=== PATIENT | male | born 1960 | race Caucasian/White ===

== ENCOUNTER → 2019-06-01 15:26 | Outpatient (CLI) | payer MEDICAID | END | disposition home or self-care (01) | LOC: D.CT 05-31 16:00 | PROVIDERS: ATTEND Family Medicine | DX: R31.9 Hematuria, unspecified (principal) ==

== ENCOUNTER 2019-10-07 11:19 | Inpatient (IN) | payer MEDICAID ==
[~2019-10-07] VITALS: Ht 162.6 cm; Wt 72.6 kg
[2019-10-07 12:31] LABS: HEMATOCRIT 46.2 % (42.0-54.0); HEMOGLOBIN 16.1 g/dL (13.5-17.5); LYMPHOCYTES 28.3 % (15-50); MCH 30.9 pg (26.0-34.0); MCHC 34.8 g/dL (31.0-37.0); MCV 88.7 fL (80.0-100.0); MEAN PLATELET VOLUME 10.2 fL (7.4-10.4); NEUTROPHILS 65.1 % (40-80); RBC 5.21 10x6/uL (4.20-6.10); RDW 12.9 % (11.5-14.5); WBC 8.7 10x3/uL (4.8-10.8)
[2019-10-07 12:34] LABS: APPEARANCE HAZY (CLEAR); BACTERIA MANY /hpf (NEGATIVE); BILIRUBIN NEGATIVE (NEGATIVE); COLOR YELLOW (YELLOW); EPITHELIAL CELLS 0-5 /hpf (0-5); GLUCOSE NEGATIVE (NEGATIVE); KETONE NEGATIVE (NEGATIVE); MUCUS <1+ /lpf (NONE SEEN); NITRITE POSITIVE (NEGATIVE); PROTEIN NEGATIVE (NEGATIVE); RED CELLS - URINE 0-5 /hpf (0-5); UROBILINOGEN NORMAL (NORMAL)
[2019-10-07 12:49] LABS: PLATELET COUNT 161 10x3/uL (130-400)
[2019-10-07 12:56] LABS: CALC OSMOLALITY 290 mosm/kg (275-300); CALCIUM 8.2 mg/dL (8.5-10.1); CARBON DIOXIDE 28.1 mmol/L (21.0-32.0); CHLORIDE - SERUM 105 mmol/L (98-107); CREATININE - SERUM 0.7 mg/dL (0.6-1.3); GLUCOSE 181 mg/dL (74-106); SODIUM 144 mmol/L (136-145); UREA NITROGEN 10 mg/dL (7-18); eGFR NON AFRICAN AMERICAN > 90 mL/min (90-120)
[2019-10-07 13:11] LABS: ALBUMIN 3.6 g/dL (3.4-5.0); ALKALINE PHOSPHATASE 67 U/L (46-116); ALT (SGPT) 141 U/L (10-68); BILIRUBIN - TOTAL 0.68 mg/dL (0.2-1.3); MAGNESIUM - SERUM 1.5 mg/dL (1.8-2.4); PHOSPHOROUS 3.1 mg/dL (2.5-4.9); PROTEIN - SERUM 7.8 g/dL (6.4-8.2)
--- NOTE | 2019-10-07 19:30 | NUR ---
PT ARRIVED ON UNIT VIA WHEELCHAIR ACCOMPANIED BY ER STAFF. SELF AMBULATE/TRANSFER TO BED. PATIENT CONNECTED TO ICU MONITORS AT THIS TIME. PT CO CONSTIPATION AND PAIN IN ABDOMEN AND SUPRAPUBLIC AREA. ADMISSIONS ASSESSMENT, HISTORY AND SUICIDE SCREENING COMPLETED AT THIS TIME. VSS CPOC
[2019-10-07 19:43] VITALS: BP 138/76; BMI 27.4
[2019-10-07 20:00] VITALS: BP 124/78
--- NOTE | 2019-10-07 20:13 | NUR ---
ADMISSIONS AT BEDSIDE FOR BELONGINGS
--- NOTE | 2019-10-07 20:34 | NUR ---
PT UP TO BEDSIDE REQUESTED, SELF AMBULATES, STEADY GATE, NON SLIP SOCKS ON AT THIS TIME. SMALL BOWEL MOVEMENT, PATIENT SELF REPORTS STRAINING AND DISCOMFORT.
[2019-10-07 21:00] VITALS: BP 124/78
[2019-10-07 22:00] VITALS: BP 119/70
[2019-10-07 23:00] VITALS: BP 125/85
--- NOTE | 2019-10-07 23:30 | NUR ---
pt resting comfortably easily roused with speech. REASSESSMENT COMPLETED SEE FLOWSHEET
[2019-10-08] VITALS (17 sets, daily range): BP systolic 98–142; BP diastolic 60–84; BMI 27.3
--- NOTE | 2019-10-08 01:00 | NUR ---
PT RESTING COMFORTABLY, NO ACUTE CHANGES CPOC
--- NOTE | 2019-10-08 03:30 | NUR ---
REASSESSMENT COMPLETED SEE FLOWSHEET
[2019-10-08 03:40] LABS: BASOPHILS 0.3 % (0-2); EOSINOPHILS 1.9 % (0-7); HEMATOCRIT 43.6 % (42.0-54.0); HEMOGLOBIN 14.8 g/dL (13.5-17.5); IMMATURE GRANULOCYTES 0.3 % (0-5); LYMPHOCYTES 30.1 % (15-50); MCH 30.9 pg (26.0-34.0); MCHC 33.9 g/dL (31.0-37.0); MONOCYTES 13.8 % (2-11); NEUTROPHILS 53.6 % (40-80); PLATELET COUNT 136 10x3/uL (130-400); RBC 4.79 10x6/uL (4.20-6.10); RDW 12.8 % (11.5-14.5); WBC 7.8 10x3/uL (4.8-10.8)
[2019-10-08 04:02] LABS: ALBUMIN 2.8 g/dL (3.4-5.0); ALKALINE PHOSPHATASE 65 U/L (46-116); ALT (SGPT) 104 U/L (10-68); BILIRUBIN - TOTAL 0.76 mg/dL (0.2-1.3); CALC OSMOLALITY 281 mosm/kg (275-300); CALCIUM 7.7 mg/dL (8.5-10.1); CARBON DIOXIDE 27.6 mmol/L (21.0-32.0); CHLORIDE - SERUM 107 mmol/L (98-107); CREATININE - SERUM 0.8 mg/dL (0.6-1.3); GLUCOSE 93 mg/dL (74-106); MAGNESIUM - SERUM 1.8 mg/dL (1.8-2.4); PHOSPHOROUS 2.9 mg/dL (2.5-4.9); POTASSIUM - SERUM 3.9 mmol/L (3.5-5.1); PROTEIN - SERUM 6.7 g/dL (6.4-8.2); SODIUM 141 mmol/L (136-145); UREA NITROGEN 15 mg/dL (7-18); eGFR NON AFRICAN AMERICAN > 90 mL/min (90-120)
--- NOTE | 2019-10-08 08:20 | NUR ---
PT PROVIDED WITH FRESH WATER REQUESTED. HAS HAD BREAKFAST TRAY. MENU REVIEWED. NOW RESTING WITH LIGHTS OUT AND BLINDS CLOSED.
--- NOTE | 2019-10-08 09:25 | NUR ---
urinal emptied of 100ml dark urine. bedside commode emptied of large soft bowel movement. pt c/o abd starting to hurt and asking for tylenol.
--- NOTE | 2019-10-08 11:23 | NUR ---
DR RUSS HAS BEEN BY TO SEE PATIENT. OK TO SEND TO FLOOR.
--- NOTE | 2019-10-08 12:29 | NUR ---
PT RESTING AT THIS TIME. NO DISTRESS NOTED. CALL LIGHT IN REACH
--- NOTE | 2019-10-08 14:30 | NUR ---
EMPTIED BEDSIDE COMMODE OF ANOTHER LARGE BOWEL MOVEMENT. WENT TO GIVE PATIENT MVI THAT IS ORDERED, NOT IN FRIDGE. CALLED PHARMACY AND SPOKE WITH SRINIVASA
--- NOTE | 2019-10-08 19:15 | NUR ---
PATIENT ALERT AND ORIENTED WHEN ENTERING THE ROOM. PATIENT WITH HYPOACTIVE BOWEL SOUNDS NOTED. DISTENDED ABDOMEN. TENDER TO TOUCH. REQUESTS PAIN MEDICINE WHEN AVAILABLE. HAS LEFT UPPER ARM IV THAT IS INFUSING MVI BAG AT THIS TIME. REFUSES SCD'S. DENIES FURTHER NEEDS AT THIS TIME. CALL LIGHT IN REACH. CPOC.
--- NOTE | 2019-10-08 21:15 | NUR ---
ADMINISTERED PAIN MEDICINE AND ATIVAN PER ORDER.
[2019-10-09 00:30] VITALS: BP 123/76
--- NOTE | 2019-10-09 03:00 | NUR ---
I have reviewed this patient and I concur with the Shift Assessment completed by the Licensed Practical Nurse today this shift.
[2019-10-09 04:30] VITALS: BP 119/52
[2019-10-09 07:46] VITALS: BP 123/70
--- NOTE | 2019-10-09 09:10 | NUR ---
PT RESTLESS THIS MORNING, STATES HE HAS HAD SEVERAL BOUTS OF DIARRHEA, UNABLE TO SIT STILL PT HAS PRN MEDICATION CAN GIVE WILL CONTINUE TO MONITOR BEHAVIOR BEFORE ADMINISTERING. NO OTHER NEEDS VOICED AT THIS TIME, CL IN REACH
--- NOTE | 2019-10-09 10:40 | NUR ---
I have reviewed this patient and I concur with the Shift Assessment completed by the Licensed Practical Nurse today this shift.
[2019-10-09 12:08] VITALS: BP 117/67
[2019-10-09 16:17] VITALS: BP 124/60
--- NOTE | 2019-10-09 19:53 | NUR ---
PATIENT ALERT AND ORIENTED WHEN ENTERING THE ROOM. SLIGHTLY DROWSY. TAKES A SECOND TO ORIENT BUT HE DOES. STATES "I JUST HAD SOME ATIVAN SO IM A LITTLE SLEEPY." PATIENT STATES HEADACHE HAS RESOLVED. DENIES NEEDS AT THIS TIME. IV TO THE LEFT WRIST IV THAT IS PATENT AND INFUSING MVI BAG AT 125. PATIENT IS UP AD BREONNA. LUNGS CLEAR TO AUSCULTATION. ROOM AIR. RECEIVED IN REPORT THAT PATIENT HAD DIARRHEA THROUGH OUT THE DAY. PATIENT STATES NO NEW EPISODES IN LAST HOUR. JUST TOOK SHOWER. IN BED AND WAITING TO GO TO SLEEP FOR NIGHT. CLEANED ROOM FOR PATIENT. DENIES FURTHER NEEDS AT THIS TIME. CPOC.
[2019-10-09 20:01] VITALS: BP 132/77
--- NOTE | 2019-10-09 22:06 | NUR ---
PATIENT REQUESTED ATIVAN. WENT TO [facility] AND PULLED. WENT IN TO SCAN AND ADMINISTER AND PATIENT HAD FALLEN BACK TO SLEEP. CALLED PATIENT NAMED AND TOUCHED ARM AND ASKED IF PATIENT STILL WANTED ATIVAN AND PATIENT STATED "NO I GUESS I DONT NEED IT." AND RETURNED BACK TO SLEEP. WILL EDIT IN EMAR AND WASTED ATIVAN WITH LIANA LIM AT [facility] AND INTO SHARPS CONTAINER PER THUAN.
[2019-10-10 00:30] VITALS: BP 132/67
--- NOTE | 2019-10-10 03:44 | NUR ---
I have reviewed this patient and I concur with the Shift Assessment completed by the Licensed Practical Nurse today this shift.
[2019-10-10 05:00] VITALS: BP 140/72
--- NOTE | 2019-10-10 05:58 | NUR ---
PATIENT REQUESTED ATIVAN AND TYLENOL. WENT TO ADMINISTER AND AFTER DRAWING UP PATIENT REFUSED ATIVAN ONCE AGAIN. PATIENT APPEARS TO BE SLIGHTLY CONFUSED THIS MORNING. WASTED ATIVAN AND RETURNED TYLENOL.
[2019-10-10 08:33] VITALS: BP 153/75
[2019-10-10 13:34] VITALS: BP 125/75
[2019-10-10 13:38] VITALS: Ht 162.6 cm; Wt 72.6 kg
[2019-10-10 17:51] VITALS: BP 116/59; BP 99/51
--- NOTE | 2019-10-10 19:40 | NUR ---
PT SITTING UP IN BED WITHOUT DISTRESS, AOX4. IV RIGHT FA INFUSING MVI @ 125. REQUESTED AND GIVEN TYLENOL FOR PAIN AND ATIVAN. DENIES OTHER NEEDS. CL IN REACH, WILL CTM
[2019-10-10 20:00] VITALS: BP 116/68
[2019-10-11 00:39] VITALS: BP 120/70
[2019-10-11 04:00] VITALS: BP 104/57
[2019-10-11 06:50] LABS: BASOPHILS 0.2 % (0-2); EOSINOPHILS 5.1 % (0-7); HEMATOCRIT 43.7 % (42.0-54.0); IMMATURE GRANULOCYTES 0.2 % (0-5); LYMPHOCYTES 40.5 % (15-50); MCHC 34.3 g/dL (31.0-37.0); MCV 90.3 fL (80.0-100.0); MEAN PLATELET VOLUME 10.9 fL (7.4-10.4); MONOCYTES 9.4 % (2-11); NEUTROPHILS 44.6 % (40-80); PLATELET COUNT 124 10x3/uL (130-400); RBC 4.84 10x6/uL (4.20-6.10); RDW 12.6 % (11.5-14.5); WBC 5.9 10x3/uL (4.8-10.8)
[2019-10-11 07:05] LABS: ALBUMIN 2.9 g/dL (3.4-5.0); ALKALINE PHOSPHATASE 50 U/L (46-116); ALT (SGPT) 106 U/L (10-68); BILIRUBIN - TOTAL 0.78 mg/dL (0.2-1.3); CALC OSMOLALITY 275 mosm/kg (275-300); CALCIUM 8.3 mg/dL (8.5-10.1); CHLORIDE - SERUM 106 mmol/L (98-107); CREATININE - SERUM 0.7 mg/dL (0.6-1.3); GLUCOSE 89 mg/dL (74-106); PROTEIN - SERUM 6.8 g/dL (6.4-8.2); SODIUM 140 mmol/L (136-145); UREA NITROGEN 7 mg/dL (7-18); eGFR NON AFRICAN AMERICAN > 90 mL/min (90-120)
[2019-10-11 07:08] LABS: APTT 30.4 SECONDS (22.8-39.4); INR 1.03 (0.85-1.17)
[2019-10-11 07:54] VITALS: BP 139/80
--- NOTE | 2019-10-11 07:55 | NUR ---
PATIENT RECIEVED RESTING IN BED WITH NO NEEDS VOICED, DENIES PAIN AT THIS TIME. IV LEFT WRIST SL. CL IN REACH
[2019-10-11 11:35] VITALS: BP 109/62
[2019-10-11 16:53] VITALS: BP 120/77
[2019-10-11 20:00] VITALS: BP 109/61
[2019-10-12] VITALS: BP 107/57
--- NOTE | 2019-10-12 02:25 | NUR ---
PT RESTING IN BED. EYES CLOSED. NO SIGNS OF DISTRES. BREATHING EVEN AND UNLABORED. IV SITE LT WRIST DRESSING CLEAN DRY AND INTACT. NO SIGNS OF INFECTION. SKIN CLEAN DRY AND INTACT. BOWEL SOUNDS ACTIVE. LUNG SOUNDS CLEAR. ABD DISTENDED AND TENDER TO PALPATION. NO LOWER LEG SWELLING PRESENT. WILL CONTINUE PLAN OF CARE. CALL LIGHT IN REACH. BED LOWERED AND LOCKED. BED RAILS UP X2.
--- NOTE | 2019-10-12 04:24 | NUR ---
I have reviewed this patient and I concur with the Shift Assessment completed by the Licensed Practical Nurse today this shift.
[2019-10-12 04:30] VITALS: BP 110/58
--- NOTE | 2019-10-12 05:49 | NUR ---
IV INFULTRATED. NEW IV SITED RT WRIST 20G. ATTEMPTS X1. PT TOLERATED WELL. WILL FALLOW UP.
[2019-10-12 06:29] LABS: BASOPHILS 0.3 % (0-2); EOSINOPHILS 1.4 % (0-7); HEMATOCRIT 43.2 % (42.0-54.0); HEMOGLOBIN 14.7 g/dL (13.5-17.5); IMMATURE GRANULOCYTES 0.2 % (0-5); LYMPHOCYTES 24.7 % (15-50); MCH 31.1 pg (26.0-34.0); MCV 91.3 fL (80.0-100.0); MEAN PLATELET VOLUME 11.3 fL (7.4-10.4); NEUTROPHILS 65.4 % (40-80); PLATELET COUNT 132 10x3/uL (130-400); RBC 4.73 10x6/uL (4.20-6.10); RDW 12.7 % (11.5-14.5); WBC 6.5 10x3/uL (4.8-10.8)
[2019-10-12 06:40] LABS: ALKALINE PHOSPHATASE 49 U/L (46-116); ALT (SGPT) 108 U/L (10-68); BILIRUBIN - TOTAL 0.84 mg/dL (0.2-1.3); CALC OSMOLALITY 279 mosm/kg (275-300); CALCIUM 8.5 mg/dL (8.5-10.1); CARBON DIOXIDE 27.1 mmol/L (21.0-32.0); CHLORIDE - SERUM 107 mmol/L (98-107); CREATININE - SERUM 0.6 mg/dL (0.6-1.3); GLUCOSE 113 mg/dL (74-106); POTASSIUM - SERUM 3.8 mmol/L (3.5-5.1); PROTEIN - SERUM 7.1 g/dL (6.4-8.2); SODIUM 141 mmol/L (136-145); UREA NITROGEN 6 mg/dL (7-18); eGFR NON AFRICAN AMERICAN > 90 mL/min (90-120)
--- NOTE | 2019-10-12 08:03 | NUR ---
WENT IN TO GIVE PREOP MEDS. PATIENT NOT IN ROOM.
[2019-10-12 09:00] VITALS: BP 126/72
--- NOTE | 2019-10-12 11:15 | NUR ---
NUTRITION F/U PT NPO FOR PROCEDURE. WILL MONITOR DIET ADVANCEMENT, PT PROGRESS. ASSIST WITH NUTRITION SUPPORT IF NEEDED. RD FOLLOWING
--- NOTE | 2019-10-12 11:58 | MORECARE ---
CASE MANAGEMENT DISCHARGE SUMMARY PATIENT: RUTH SANTIAGO UNIT: [id number] ADM DATE: 10/07/19 AGE: 58 : 64 SEX: M ROOM/BED: D.2216 AUTHOR: AARON,DOC PHYSICIAN: REFERRING PHYSICIAN: IRAJ RUSS MD DATE OF SERVICE: 10/12/19 Discharge Plan Patient Name: RUTH SANTIAGO Facility: [facility]:[place] : 1960 Planned Disposition: Home or Self Care Anticipated Discharge Date: Discharge Date: Expected LOS: Initial Reviewer: [id number] Initial Review Date: 10/07/2019 Generated: 10/12/19 12:58 pm Comments DCP- Discharge Planning Updated by [id number]: Bettye Gee on 10/12/19 10:[address] Patient Name: RUTH SANTIAGO Admission Status: ER Accout number: [id number] Admission Date: 10-07-2019 : 1960 Admission Diagnosis: Attending: IRAJ RUSS Current LOS: 5 Anticipated DC Date: Planned Disposition: Home or Self Care Primary Insurance: MEDICAID [place] Discharge Planning Comments: CM met with patient to complete initial dc planning assessment. CM educated patient on the CM role and verbal consent given by patient to complete assessment. Patient lives at home where he is independent with his care. At discharge patient plans to return home and feels this is a safe discharge. 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 CM discussed availability of home health, rehab services, and medical equipment. I am unsure of potential needs till his surgery is done. Patient denied known discharge needs at this time. CM will continue to follow and will assist as needed with dc plans/needs. Mail Superintendent: Bettye Gee DCPIA - Discharge Planning Initial Assessment Updated by [id number]: Bettye Gee on 10/12/19 11:50 am * Is the patient Alert and Oriented? Yes * How many steps to enter\exit or inside your home? 06/30 * PCP JEB * Pharmacy [facility] [address] * Preadmission Environment Home Alone * ADLs Independent * Equipment None * List name and contact numbers for known caregivers / representatives who currently or will assist patient after discharge: LANI GREENE (SISTER) [phone] * Verbal permission to speak to the caregivers and representatives has been obtained from the patient. N/A * Community resources currently utilized None * Additional services required to return to the preadmission environment? No * Can the patient safely return to the preadmission environment? Yes * Has this patient been hospitalized within the prior 30 days at any hospital? No Patient Name: RUTH SANTIAGO Page [id number] at 1158 All edits/amendments must be made on the electronic document DICTATION DATE: 10/12/19 1158 BUSINESS INTELLIGENCE DEVELOPER: SEBASTIAN 10/12/19 1158 RPT#: [id number] DC DATE: STATUS: ADM IN [facility] [address] [place] [address] END OF REPORT
--- NOTE | 2019-10-12 12:30 | NUR ---
PATIENT BACK TO THE ROOM. VS STABLE. IV INTACT. PATIENT AWAKE LIGHTLY AND WANTING TO GET OUT OF BED. NO COMPLAINTS OR SIGNS OF DISTRESS. EXPLAINED TO PATIENT THAT HE HAS TO STAY IN BED FOR AWHILE. VERBALIZED UNDERSTANDING. CALL LIGHT WITHIN REACH.
[2019-10-12 12:36] VITALS: BP 117/76
--- NOTE | 2019-10-12 12:45 | NUR ---
AT 1155 PATIENT CONTINUED TO TRY TO CLIMB OUT OF BED, STATING HE WANTED TO STAND UP. CONSULTED ANESTHESIA AND REPORTED THE ABOVE. DR. PITTMAN AT BEDSIDE. VERBAL ORDERS RECEIVED TO ADMINISTER VERSED 2MG IV X1 NOW IN PACU. ORDERS RECEIVED AND IMPLEMENTED. WILL CONTINUE TO MONITOR.
--- NOTE | 2019-10-12 13:20 | NUR ---
PATIENT TRYING TO GET OUT OF BED AND GO SMOKE. EXPLAINED NOT ALLOWED TO GO SMOKE. JUST BACK FROM SURGERY. ASSISTED PATIENT TO BR. ABLE TO VOID. ASSISTED BACK TO BED. TURNED BED ALARM ON. EXPLAINED TO PATIENT TO CALL FOR ASSIST.
--- NOTE | 2019-10-12 13:52 | OP ---
PATIENT NAME: RUTH SANTIAGO MEDICAL RECORD: [id number] :[birth year] LOCATION:D.MS [id number] ADMISSION DATE:10/07/19 SURGEON: DIAN VILLAFANA MD DATE OF OPERATION: 10/12/2019 SURGEON: Dian Villafana MD PREOPERATIVE DIAGNOSES: 1. Diverticulitis. 2. Colovesical fistula. 3. Recurrent chronic urinary tract infection. POSTOPERATIVE DIAGNOSES: 1. Diverticulitis. 2. Colovesical fistula. 3. Recurrent chronic urinary tract infection. PROCEDURE PERFORMED: Sigmoid colectomy with end colostomy, small bowel resection, primary repair of bladder and appendectomy. ANESTHESIA: General. COMPLICATIONS: None. SPECIMENS: Sigmoid colon, small bowel, appendix Case was clean contaminated. ESTIMATED BLOOD LOSS: 150 cc. OPERATIVE COURSE: After consent was obtained, the patient was taken to the operating room and placed in the supine position on the operating table. Next, general anesthesia was given via endotracheal intubation after a timeout was performed to confirm the correct patient and procedure. The patient was then placed into the lithotomy position. Appropriate padding and positioning was performed. The abdomen was then prepped and draped in typical sterile fashion and Ioban dressing was placed. A lower midline incision was then performed using the 10 blade scalpel from the umbilicus to the pubic tubercle. Subcutaneous tissue was dissected with electrocautery. The fascia was opened with electrocautery. The peritoneum was grasped with hemostats times 2 and opened with sharp scissor dissection. Once there was direct view into the intra-abdominal space, the remaining portion of the incision was opened with electrocautery. An Quirino wound retractor was placed. A small bowel was attempted to be extracorporealized. There was a loop of small bowel densely adherent to the bladder and sigmoid colon on the anterior dome of the bladder. The small bowel was dissected using electrocautery and sharp scissor dissection of the dome of the bladder as well as the sigmoid colon. There was a partial thickness injury of the dome of the bladder. After takedown at the level of the colovesical fistula, a bladder repair was performed in 2 layers, inner 2-0 Vicryl and an outer 3-0 Vicryl closing the dome of the bladder. The loop of small bowel was in the terminal ileum. The terminal ileum and cecum were gently mobilized off the lateral pelvic side wall. At this time, the sigmoid colon was attempted to mobilized. It was taken off the pelvic side wall using sharp scissor dissection. The white line of Toldt was taken along the distal left colon using electrocautery. The sigmoid colon was held anteriorly exposing the OPERATIVE REPORT [id number] RUTH SANTIAGO vascular bundle. The bundle was dissected out. The artery and vein were identified. They were transected using the Harmonic scalpel. They were then tied off using a 2-0 silk suture, the left and right, the sigmoid colon was transected. Healthy tissue was identified when the sigmoid colon was transected, proximal at the junction of the descending and sigmoid colon using FANY stapler. The left and right ureters were identified and retracted with vessel clamps. The presacral fascia was opened with blunt dissection. The remaining portion of the sigmoid colon was again dissected off the anterior dome of the bladder and the peritoneal reflection was opened. The sigmoid colon was then transected at the rectosigmoid junction using a FANY linear cutting stapler. Remaining portion of the mesenteric attachments were taken with the Harmonic scalpel. The sigmoid colon was passed off the field and sent for permanent pathology. A #8 0 Prolene suture was then fashioned to the staple line with a long tail to allow for identification of the rectal stump. The area was copiously irrigated and suctioned. At this time, an appendectomy was performed. The area of involved fistula was resected off the terminal ileum. A standard [id number] anastomosis was performed with the linear GI stapler. A common enterotomy was closed with a second firing a FANY stapler and a 5 cm section of the small bowel resection was passed off the field and sent for permanent pathology. The staple line was imbricated using 3-0 Vicryl suture. The appendiceal stump was imbricated using 3-0 Vicryl suture. The abdomen was again copiously irrigated and suctioned. An area was identified in the left lateral quadrant. Circular incision was made using electrocautery and subcutaneous tissue was dissected with electrocautery. A cruciate incision was made. The rectus muscles were gently spread with a blunt hemostat. The peritoneum was opened with electrocautery. Using a Astoria, the staple line of the distal colon was grasped and delivered through the anterior abdominal wall. Next, all members of surgical team changed gown and gloves. The closing table was then used to close the fascia with #1 looped PDS. Skin was loosely reapproximated with izaiah and the wound was covered with a dry sterile dressing. At this time, the staple line was opened on the colostomy. The colostomy was secured to the skin in a standard Petra fashion using 3-0 Vicryl suture. At the end of the case, all needle and instrument counts were correct. No complications occurred. The patient was extubated and transferred to the PACU in stable condition. TRANSINT:[id number] Voice Confirmation ID: [id number] DOCUMENT ID: [id number] DIAN VILLAFANA MD at 1352 CC: [id number] DICTATION DATE: 10/12/19 1108 DARKROOM WORKER: 10/12/19 1205 ADM IN [facility] [address] [place] [address]
--- NOTE | 2019-10-12 14:06 | NUR ---
PATIENT CONFUSED TRYING TO GET OUT OF BED AT THIS TIME. IV INTACT. ATIVAN GIVEN. VS STABLE. INCISION INTACT, SMALL AMOUNT OF RED DRAINAGE ON DRESSING. COLOSTOMY INTACT. CALL LIGHT WITHIN REACH.
--- NOTE | 2019-10-12 14:30 | NUR ---
PATIENT COLOSTOMY CHANGED DUE TO LEAKING ON THE OUTSIDE. PATIENT TRYING TO GET UP AND DOWN FROM BED AND CAUSE HIS ABDOMINAL INCISION AND COLOSTOMY SITE TO BLEED A SMALLA MOUNT. PATIENT IV INTACT. EXPLAINED TO PATIENT NOT TO GET BACK UP WITHOUT ASSIST. BED ALARM ON. CALL LIGT WITHIN REACH.
[2019-10-12 16:19] VITALS: BP 134/78
--- NOTE | 2019-10-12 16:30 | NUR ---
ASSISTED PATIEN TO BR AGAIN. REFUSING TO LET ME TAKE ANYMORE POST OP VS. VS WNL. VOIDED AND BACK TO BED. BSCDS ON AND WORKING. CALL LIGHT WITHIN REACH, BED ALARM ON.
--- NOTE | 2019-10-12 18:41 | NUR ---
PATIENT OUT OF BED AGAIN IN HALLWAY WANTING A TRAY. EXPLAINED HE WAS NPO AT THIS TIME. VERBALIZED UNDERSTANDING. ASSISTED BACK TO BED. BED ALARM ON. CALL LIGHT WITHIN REACH.
--- NOTE | 2019-10-12 19:50 | NUR ---
PT STANDING UP IN ROOM. DISCOURAGED PT FROM AMBULATING WITHOUT HELP. YAZMIN ALARM ACTIVATED. PT IS VERY CONFUSED. ORIENTED TO SELF AND TIME ONLY. UNAWARE THAT HE HAD SURGERY AND THAT HE IS IN THE HOSPITAL. ASSISTED BACK TO BED. RESP NONLABORED. NOT WEARING SCDS. COLOSTOMY NOTED TO LT QUAD WITH PINK STOMA AND BLOODY DRAINAGE IN BAG. MIDLINE ABD DRSG NOTED WITH OLD DRAINAGE MARKED. RATES PAIN 10. HAS SCHEDULED TORADOL THAT WAS DUE AT 1900. CL IN REACH.
--- NOTE | 2019-10-12 21:00 | NUR ---
STANDING UP AT BEDSIDE. STATES HE NEEDS TO GO OUTSIDE. ASSISTED PT BACK TO BED. YAZMIN ALARM ON. INFORMED PT THAT HE HAD ABDOMINAL SURGERY AND NEEDS TO REST. VERY CONFUSED. DIFF FOLLOWING DIRECTIONS. CL IN REACH.
--- NOTE | 2019-10-12 23:19 | NUR ---
PT OOB IN HALLWAY INSISTING HE IS GOING HOME. VERY CONFUSED AND AGITATED. SNAPPED IV TUBING INTO. ASSISTED BACK TO BED. MEDICATED WITH ATIVAN IV ORDERED. EMCOURAGED BED REST. PT HAS BEEN UP AND DOWN SEVERAL TIMES SINCE START OF SHIFT. YAZMIN ALARM ON. CL IN REACH.
[2019-10-13] VITALS (25 sets, daily range): BP systolic 89–128; BP diastolic 34–67
--- NOTE | 2019-10-13 00:08 | NUR ---
LYING ON RT SIDE IN BED WITH EYES CLOSED. RESP EVEN AND NONLABORED. NOT ASLEEP. MOVING SLIGHTLY IN BED. YAZMIN ALARM ON. CL IN REACH. NO DISTRESS.
--- NOTE | 2019-10-13 02:01 | NUR ---
LYING ON LT SIDE IN BED WITH EYES CLOSED. RESP EVEN AND NONLABORED. NO DISTRESS. CL IN REACH. YAZMIN ALARM ON
--- NOTE | 2019-10-13 04:27 | NUR ---
ORIENTED TO SELF, PLACE AND TIME. CONFUSED TO SITUATION. DOESNT REMEMBER HAVING SURGERY. YAZMIN ALARM ON. CL IN REACH.
--- NOTE | 2019-10-13 05:41 | NUR ---
FLATUS NOTED IN COLOSTOMY BAG WITH LIQUID STOOL THAT IS REDDISH BROWN. EMPTIED 50 ML FROM BAG.
[2019-10-13 06:31] LABS: BASOPHILS 0.1 % (0-2); EOSINOPHILS 0 % (0-7); IMMATURE GRANULOCYTES 0.4 % (0-5); LYMPHOCYTES 19.3 % (15-50); MCH 30.8 pg (26.0-34.0); MCHC 33.4 g/dL (31.0-37.0); MCV 92.2 fL (80.0-100.0); MONOCYTES 8.7 % (2-11); NEUTROPHILS 71.5 % (40-80); PLATELET COUNT 151 10x3/uL (130-400); RDW 12.8 % (11.5-14.5)
[2019-10-13 06:35] LABS: HEMATOCRIT 31.7 % (42.0-54.0); HEMOGLOBIN 10.6 g/dL (13.5-17.5); RBC 3.44 10x6/uL (4.20-6.10); WBC 11.2 10x3/uL (4.8-10.8)
[2019-10-13 06:54] LABS: ALBUMIN 2.5 g/dL (3.4-5.0); ALKALINE PHOSPHATASE 35 U/L (46-116); ALT (SGPT) 88 U/L (10-68); BILIRUBIN - TOTAL 1.07 mg/dL (0.2-1.3); CALCIUM 7.8 mg/dL (8.5-10.1); CARBON DIOXIDE 27.8 mmol/L (21.0-32.0); CHLORIDE - SERUM 107 mmol/L (98-107); GLUCOSE 150 mg/dL (74-106); POTASSIUM - SERUM 4.2 mmol/L (3.5-5.1); PROTEIN - SERUM 5.5 g/dL (6.4-8.2); SODIUM 141 mmol/L (136-145); eGFR NON AFRICAN AMERICAN > 90 mL/min (90-120)
[2019-10-13 06:56] LABS: CALC OSMOLALITY 282 mosm/kg (275-300); CREATININE - SERUM 0.9 mg/dL (0.6-1.3); UREA NITROGEN 11 mg/dL (7-18)
--- NOTE | 2019-10-13 07:40 | NUR ---
ALERT AND ORIENTED. LUNGS CLEAR BILATERALLY. HEART SOUNDS S1 AND S2 HEARD IN ALL MICHAUD. BOWEL SOUNDS ACTIVE X 4. MIDLINE INCISION TO ABD WITH DRSG. DRIED BLOOD NOTED TO DRSG. LEFT SIDE OSTOMY PATENT. 50ML DRAINED FROM BAG. IF TO RFA PATENT WITHOUT REDNESS. ASKING FOR PAIN MEDICATION. NO PAIN MEDICATION ON JAN. BP 97/56. DENIES FURTHER NEEDS. FALL PRECAUTIONS IN PLACE. CALL MORAES AND PERSONAL ITEMS IN REACH. WILL CONTINUE TO MONITOR.
--- NOTE | 2019-10-13 09:11 | NUR ---
LEÓN PLACED PER ORDER.
--- NOTE | 2019-10-13 09:27 | NUR ---
BOLUS INFUSING. WILL CHECK BP AFTER BOLUS TO SEE IF CAN GIVE PAIN MEDICATION. EDUCATION PROVIDED TO PATIENT. VERBALIZED UNDERSTANDING.
--- NOTE | 2019-10-13 11:45 | NUR ---
PATIENT FOUND WITH BLOOD TO ABDOMEN AND OSTOMY BAG WITH 100ML BLOOD. DIAPHORETIC AND COLD. DR BRODERICK TUCKER. VITALS BP 100/44, HR 80, O2 97% ROOM AIR, TEMP 97.6.
--- NOTE | 2019-10-13 12:00 | NUR ---
ORDER FOR LR BOLUS 1000ML X 2 BAGS. IV PREVIOUSLY PULLED OUT. RESITED TO RIGHT AND LEFT AC. BOLUS BAGS STARTED. OSTOMY BAG CHANGED.
--- NOTE | 2019-10-13 12:20 | NUR ---
IV TO RIGHT AND LEFT AC OCCLUDED. RESITED TO RIGHT AND LEFT WRIST. DR VILLAFANA IN ROOM. ORDER TO TRANSFER TO ICU WHEN ROOM READY. ICU AWARE.
--- NOTE | 2019-10-13 12:29 | NUR ---
REPORT CALLED TO ICU. DENIES FURTHER QUESTIONS. PATIENT SENT TO ICU WITH NURSE RECORDS MANAGEMENT ASSISTANT SHRUTHI AND DRAKE SHANE.
--- NOTE | 2019-10-13 12:49 | NUR ---
PT TO UNIT VIA BED, HOOKED TO MONITORS, B/L HAND PIV, ON RA WITH 100% O2 SAT. INCISION TO ABDOMEN, MARION INTACT, DRSG APPLIED, COLOSTOMY NOTED WITH BROWN DRAINAGE, LEÓN CATHETER WITH DARK UOP, ALL PPP, VSS, CALL LIGHT IN REACH
--- NOTE | 2019-10-13 13:00 | NUR ---
AT BEDSIDE. WILL CONT TO MONITOR.
[2019-10-13 13:46] LABS: CKMB 0.7 U/L (0.0-3.6); CREATINE KINASE 347 UL (21-232); TROPONIN-I 0.052 ng/mL (0.000-0.060)
--- NOTE | 2019-10-13 15:00 | NUR ---
PT RECEIVING BLOOD. NO ACUTE NEEDS OR DISTRESS NOTED AT THIS TIME. WILL CONT TO MONITOR.
--- NOTE | 2019-10-13 17:00 | NUR ---
PT IN BED RESTING WITH EYES CLOSED. PT DENIES ANY NEEDS OR DISTRESS AT THIS TIME. VSS. WILL CONT TO MONITOR.
[2019-10-13 18:28] LABS: HEMATOCRIT 26.9 % (42.0-54.0); HEMOGLOBIN 8.9 g/dL (13.5-17.5)
[2019-10-13 18:53] LABS: CKMB 0.8 U/L (0.0-3.6); CREATINE KINASE 280 UL (21-232)
[2019-10-13 18:55] LABS: TROPONIN-I 0.158 ng/mL (0.000-0.060)
--- NOTE | 2019-10-13 19:15 | NUR ---
PT ALERT, VOICES NEEDS, LUNGS CLEAR, LEFT TLSC INTACT WITH FFP INFUSING AND D5LR WITH 20 KCL @ 50 CC/HR, LEÓN PATENT TO BSD WITH BLOOD TINGED URINE, LEFT COLOSTOMY WITH BAG INTACT, ABDOMINAL INCISION WITH DRESSING C/D/I, VITALS STABLE, WILL CONT TO MONITOR
--- NOTE | 2019-10-13 21:00 | NUR ---
PT C/O PAIN, INFORMED PT HIS PAIN MED WAS NOT DUE YET, PT CONSTANTLY SQUIRMING IN BED, INSTRUCTED PT THAT MORE MOVEMENT WOULD IN CREASE HIS PAIN
--- NOTE | 2019-10-13 22:00 | NUR ---
BED ALARM ENGAGED, PT TRYING TO CLIMB OUT OF BED, CONFUSED, STAES HE HASNT HAD ANY PAIN MEDS, INFORMED PT HE COULD NOT GET OUT OF BED, PT GROGGY, CONFUSED, BED ALARM RESET, WILL CONT TO MONITOR
--- NOTE | 2019-10-13 22:45 | NUR ---
BED ALARM SOUNDED, PT CLIMBING OUT OF BED, CONFUSED, RETURNED TO BED WITH ASSIST FROM STAFF, REPLACED LEÓN STAT OSCAR, PT PLACED IN BILAT SOFT WRIST RESTRAINTS
--- NOTE | 2019-10-13 22:50 | NUR ---
DR. ARRINGTON PAGED. AT 2300 DR. ARRINGTON RETURNED PAGE - NOTIFIED OF PT PULLING AT LEÓN CATH, SURGICAL DSG/OSTOMY BAG AND IV TUBINGS. NEW ORDERS REC'D.
[2019-10-14] VITALS (31 sets, daily range): BP systolic 90–196; BP diastolic 43–118
[2019-10-14 00:51] LABS: HEMOGLOBIN 5.5 g/dL (13.5-17.5)
[2019-10-14 00:53] LABS: HEMATOCRIT 16.5 % (42.0-54.0)
--- NOTE | 2019-10-14 01:00 | NUR ---
LAB CALLED, H/H CRITICAL, CALLED DR KWOK, NOTIFIED OF PT SITUATION AND CRITICALS, ORDERS RECIEVED TO TRANSFUSE FFP AND PRBC
--- NOTE | 2019-10-14 01:22 | NUR ---
PT REMAINS CONFUSED, IS NOW TACHYCARDIC, STARTED 1ST UNIT PRBC VIA LEFT TLSC, WILL CONT TO MONITOR
[2019-10-14 01:46] LABS: CKMB 1.3 U/L (0.0-3.6); CREATINE KINASE 267 UL (21-232)
[2019-10-14 01:47] LABS: TROPONIN-I 0.107 ng/mL (0.000-0.060)
--- NOTE | 2019-10-14 02:10 | NUR ---
PT RESTING, HR 96, VITALS STABLE, BLOOD TRANSFUSING, REMAINS CONFUSED WITH RESTRAINTS IN USE
--- NOTE | 2019-10-14 04:10 | NUR ---
TRANSFUSION 3RD UNIT PRBC COMPLETED, PT REMAINS CONFUSED, NOTED BLOODY OUTPUT FROM COLOSTOMY, ABDOMEN DISTENDED, VITALS STABLE, WILL CONT TO MONITOR
--- NOTE | 2019-10-14 05:00 | NUR ---
PT REMAINS CONFUSED, AM LABS DRAWN FROM LEFT [facility], WILL CONT TO MONITOR
[2019-10-14 06:21] LABS: ALBUMIN 2.3 g/dL (3.4-5.0); ANION GAP 13.4 mmol/L (8-16); BILIRUBIN - TOTAL 1.88 mg/dL (0.2-1.3); CALCIUM 7.4 mg/dL (8.5-10.1); CARBON DIOXIDE 24.7 mmol/L (21.0-32.0); CREATININE - SERUM 1.2 mg/dL (0.6-1.3); POTASSIUM - SERUM 5.1 mmol/L (3.5-5.1); PROTEIN - SERUM 4.8 g/dL (6.4-8.2)
--- NOTE | 2019-10-14 06:43 | NUR ---
PT REMAINS CONFUSED, ABDOMEN MORE FIRM, DISTENDED, BOWEL SOUNDS HYPOACTIVE, WILL CONT TO MONITOR
[2019-10-14 06:52] LABS: LYMPHOCYTES 14.2 % (15-50); MCH 31.3 pg (26.0-34.0); MEAN PLATELET VOLUME 12.5 fL (7.4-10.4); NEUTROPHILS 74.7 % (40-80); RDW 13.7 % (11.5-14.5); WBC 12.3 10x3/uL (4.8-10.8)
[2019-10-14 06:53] LABS: HEMATOCRIT 24.6 % (42.0-54.0); HEMOGLOBIN 8.6 g/dL (13.5-17.5); MCV 89.5 fL (80.0-100.0); PLATELET COUNT 66 10x3/uL (130-400); RBC 2.75 10x6/uL (4.20-6.10)
--- NOTE | 2019-10-14 07:00 | NUR ---
REC'D REPORT AND REUSMED CARE, AWAKE AND CONFUSED, DOES NOT FOLLOW COMMANDS, VSS, O2 VIA NC AT 2L, B/L WRIST RESTRAINTS IN USE, LEÓN TO GRAVITY WITH BLOODY DRAINAGE TO BAG, MIDLINE ABDOMINAL INCISION WITH ABD PAD, AFFIXED, BLOOD NOTE TO EDGES, LEFT COLOSTOMY WITH BLODDY DRAINAGE TO BAG, ASSESSMENT, COMPLETED PER FLOWSHEET, ORAL CARE WITH TOOTHETTES GIVEN, WILL CONTINUE TO MONITOR
[2019-10-14 07:27] LABS: APTT 27.7 SECONDS (22.8-39.4); INR 1.14 (0.85-1.17); PROTIME 14.1 SECONDS (11.6-15.0)
[2019-10-14 08:51] LABS: PLATELET ESTIMATE DECREASED
--- NOTE | 2019-10-14 09:00 | NUR ---
MORNING MEDICATIONS GIVEN PER MAR FLOWSHEET
--- NOTE | 2019-10-14 10:30 | NUR ---
C/O OF PAIN IN BACK, MORPHINE 2 MG IVP GIVEN PER PRN ORDER
--- NOTE | 2019-10-14 11:00 | NUR ---
RESTING WTIH NO SIGN OF DISTRESS, VSS, DENIES PAIN AT THIS TIME, NO ACUTE CHANGE FROM PREVIOUS ASSESSMENT
--- NOTE | 2019-10-14 11:10 | NUR ---
Nutrition follow-up: Pt s/p exp lap Now in ICU NPO Labs reviewed Pt with confusion and hypoactive BS with firmness per nursing. Recommend starting ProcalAmine PPN @ 75 ml per hour until pts diet able to advance. RDN following.
[2019-10-14 11:11] LABS: HEMATOCRIT 20.4 % (42.0-54.0)
[2019-10-14 11:14] LABS: HEMOGLOBIN 7.2 g/dL (13.5-17.5)
--- NOTE | 2019-10-14 13:40 | NUR ---
TC HERE FOR ECHO, PER DR VILLAFANA, PATIENT TO SURGERY FIRST RE: BLEED, SURGERY NOTIFIED TO TURN OUT PATIENT
--- NOTE | 2019-10-14 13:45 | NUR ---
TO SURGERY VIA BED WITH PERSONNEL TIMES 3, AWAKE AND CONFUSED, PRBC'S INFUSING AT 125 CC/HR
--- NOTE | 2019-10-14 13:51 | NUR ---
PREOP MEDS GIVEN, PATIENT TO SURGERY VIA BED WITH HOSPITAL PERSONNEL X3, AWAKE AND CONFUSED, VSS
--- NOTE | 2019-10-14 14:54 | NUR ---
9 LAPS PACKED IN PATIENTS ABDOMEN. KD
--- NOTE | 2019-10-14 15:20 | NUR ---
BACK FROM SURGERY, 7.0 ETT AT [address], AMBU BAG IN USE, PLACE TO VENT ON AC WITH 100% FIO2, WV TO ABDOMIN MIDLINE, NGT CLAMPED TO RIGHT NARE, NO OTHER ACUTE CHANGE FROM PREVIOUS ASSESSMENTS,
[2019-10-14 16:13] LABS: APTT 27.2 SECONDS (22.8-39.4); CALCIUM 7.6 mg/dL (8.5-10.1); CARBON DIOXIDE 27.5 mmol/L (21.0-32.0); CHLORIDE - SERUM 112 mmol/L (98-107); INR 1.06 (0.85-1.17); POTASSIUM - SERUM 5.1 mmol/L (3.5-5.1); PROTIME 13.3 SECONDS (11.6-15.0); SODIUM 144 mmol/L (136-145); UREA NITROGEN 25 mg/dL (7-18); eGFR NON AFRICAN AMERICAN > 90 mL/min (90-120)
[2019-10-14 16:17] LABS: CALC OSMOLALITY 291 mosm/kg (275-300); CREATININE - SERUM 0.8 mg/dL (0.6-1.3); GLUCOSE 118 mg/dL (74-106)
[2019-10-14 16:20] LABS: HEMATOCRIT 29.9 % (42.0-54.0); HEMOGLOBIN 10.1 g/dL (13.5-17.5)
--- NOTE | 2019-10-14 16:59 | OP ---
PATIENT NAME: RUTH SANTIAGO MEDICAL RECORD: [id number] :64 LOCATION:[facility] D.2311 ADMISSION DATE:10/07/19 SURGEON: DIAN VILLAFANA MD DATE OF OPERATION: 10/14/2019 PROCEDURE PERFORMED: Laparotomy, drainage, evacuation of intra-abdominal hematoma, abdominal packing with hemorrhage control. ANESTHESIA: General. COMPLICATIONS: None. SPECIMENS: None. Case was clean. ESTIMATED BLOOD LOSS: 5 liters. OPERATIVE COURSE: After consent was obtained, the patient was taken to the operating room and placed in supine position on the operating table. Next, general anesthesia was given via endotracheal intubation after a timeout was performed to confirm the correct patient and procedure. Abdomen was prepped and draped in typical sterile fashion. Previous midline abdominal izaiah were removed. Dissection continued down to the level of the fascia. The Prolene closing suture was identified. It was cut with scissors. The remaining sutures removed. The abdominal cavity was reopened. Approximately, 5 liters of blood were evacuated from the abdominal cavity. The abdominal cavity was then packed in all 4 quadrants and held for approximately 10 minutes. At this time, the packing was removed from all 4 quadrants and all 4 quadrants were inspected. There was no active bleeding noted within the abdominal cavity. The abdominal cavity was then copiously irrigated with saline. Again, meticulous inspection was performed in the areas of previous surgery. Again, no active bleeding was identified. The abdomen was packed with laparotomy sponges, totaling 9; two placed into the left upper quadrant, two into the right upper quadrant, one on the right lateral side wall, three into the pelvis and one to the left lateral side wall. At this time, the ABThera intra-abdominal wound VAC was cut to size and placed into the abdominal cavity, covered by the outer sponge, it was secured to the skin with tape, placed to suction with good seal. At this time, the patient was transferred to the ICU in critical condition, intubated. TRANSINT:[id number] Voice Confirmation ID: [id number] DOCUMENT ID: [id number] DIAN VILLAFANA MD at 1659 CC: [id number] DICTATION DATE: 10/14/19 1514 SEO MANAGER: 10/14/19 1619 ADM IN [place] [id number] [facility] [place] [address]
--- NOTE | 2019-10-14 19:15 | NUR ---
RECEIVED CARE OF PT, ASSESSMENT PER FLOWSHEET. PT INTUBATED, AGITATED AT THIS TIME, DIPRIVAN GTT AND FENTANYL GTT'S INCREASED PER MD ORDERS, PT REPOSITIONED FOR COMFORT, ABD WOUND VAC CDI, COLOSTOMY DRESSING INTACT-BLOODY DRAINAGE NOTED IN COLLECTION BAG, LEÓN CATH PATENT, PPP, HR SR ON CM. POSITIONED FOR COMFORT, WILL MONITOR.
[2019-10-14 19:49] LABS: HEMATOCRIT 28.7 % (42.0-54.0); HEMOGLOBIN 9.8 g/dL (13.5-17.5)
--- NOTE | 2019-10-14 21:30 | NUR ---
NO VISITORS PRESENT AT THIS TIME, VSS, PT RESTING AT THIS TIME
--- NOTE | 2019-10-14 23:26 | NUR ---
PT AGITATED, INCREASED FENTANYL GTT FROM 150 TO 200 MCG/HR PER MD ORDER. WILL MONITOR FOR DESIRED EFFECT, ALL ATTEMPTS TO VERBALLY CALM PT UNSUCCESSFUL.
[2019-10-15] VITALS (24 sets, daily range): BP systolic 88–109; BP diastolic 45–65
[2019-10-15 00:18] LABS: HEMATOCRIT 26.5 % (42.0-54.0)
--- NOTE | 2019-10-15 00:35 | NUR ---
H & H RESULTS REVIEWED, VSS AT THIS TIME, WILL CONT POC.
--- NOTE | 2019-10-15 03:15 | NUR ---
REASSESSMENT PER FLOWSHEET, NO ACUTE CHANGES NOTED A THIS TIME. PT RESTING SEDATED ON VENT, HR SR ON CM, POSITIONED FOR COMFORT, CONT POC.
[2019-10-15 05:08] LABS: BASOPHILS 0 % (0-2); EOSINOPHILS 0 % (0-7); HEMATOCRIT 27.7 % (42.0-54.0); HEMOGLOBIN 9.4 g/dL (13.5-17.5); IMMATURE GRANULOCYTES 0.3 % (0-5); MCH 30.7 pg (26.0-34.0); MCHC 33.9 g/dL (31.0-37.0); MCV 90.5 fL (80.0-100.0); MEAN PLATELET VOLUME 10.9 fL (7.4-10.4); NEUTROPHILS 71.7 % (40-80); RBC 3.06 10x6/uL (4.20-6.10); RDW 14.7 % (11.5-14.5)
[2019-10-15 05:22] LABS: PLATELET COUNT 92 10x3/uL (130-400); WBC 9.2 10x3/uL (4.8-10.8)
[2019-10-15 05:25] LABS: ALBUMIN 1.9 g/dL (3.4-5.0); ALKALINE PHOSPHATASE 38 U/L (46-116); ALT (SGPT) 58 U/L (10-68); BILIRUBIN - TOTAL 3.73 mg/dL (0.2-1.3); CALC OSMOLALITY 290 mosm/kg (275-300); CALCIUM 7.3 mg/dL (8.5-10.1); CARBON DIOXIDE 26.4 mmol/L (21.0-32.0); CHLORIDE - SERUM 110 mmol/L (98-107); CREATININE - SERUM 0.8 mg/dL (0.6-1.3); GLUCOSE 132 mg/dL (74-106); PROTEIN - SERUM 4.5 g/dL (6.4-8.2); SODIUM 144 mmol/L (136-145); UREA NITROGEN 19 mg/dL (7-18); eGFR NON AFRICAN AMERICAN > 90 mL/min (90-120)
[2019-10-15 05:26] LABS: POTASSIUM - SERUM 4.3 mmol/L (3.5-5.1)
[2019-10-15 05:31] LABS: D-DIMER-QUANTITATIVE 2.22 ug/mLFEU (0.20-0.54)
--- NOTE | 2019-10-15 08:15 | NUR ---
LYING IN BED ON VENT AT THIS TIME. VSS. NO ACUTE DISTRESS NOTED. PT TURNED Q2H. ORAL CARE PROVIDED Q2H. WOUND VAC SITE CDI, DRESSING ADHERED TO SKIN. NOTED WITH LIGHT BLOODY APPEARING DRAINAGE TO WOUND VAC, LEÓN, AND SLIGHT AMOUNT TO COLOSTOMY OF LIGHT BOODY DRAINAGE. THIS IS NO CHANGE PER SHIFT REPORT. WILL CONTINUE TO OBSERVE.
--- NOTE | 2019-10-15 08:20 | NUR ---
NOTED ORDER TO CHECK H&H Q4H PER DR VILLAFANA, ORDER FELL OFF AFTER 0500 DRAW, ORDER RESTARTED.
[2019-10-15 09:26] LABS: HEMATOCRIT 27.6 % (42.0-54.0); HEMOGLOBIN 9.3 g/dL (13.5-17.5)
--- NOTE | 2019-10-15 10:11 | NUR ---
NO ACUTE DISTRESS NOTED. NO CHANGE. VSS. SWAP CAPS IN PLACE. WILL CONTINUE PLAN OF CARE.
--- NOTE | 2019-10-15 10:50 | NUR ---
NGT PLACED TO LOW INT SUCTION PER DR VILLAFANA.
--- NOTE | 2019-10-15 12:37 | NUR ---
NO ACUTE DISTRESS NOTED. NO CHANGE. VSS. CALL LIGHT IN REACH. WILL CONTINUE PLAN OF CARE.
--- NOTE | 2019-10-15 14:13 | NUR ---
NO ACUTE DISTRESS NOTED. NO CHANGE. VSS. TURNED Q2H. ORAL CARE PROVIDED Q2H. NOTED PT OPENS EYES AT TIMES, NODDED HEAD WHEN ASKED YES/NO QUESTION. WILL CONTINUE PLAN OF CARE.
--- NOTE | 2019-10-15 15:11 | NUR ---
CHG BATH GIVEN AT THIS TIME WITH TOTAL LINEN CHANGE. TRIPP CARE PROVIDED. NO ACUTE DISTRESS NOTED. VSS. PT TURNED Q2H. ORAL CARE PROVIDED Q2H. WILL CONTINUE PLAN OF CARE.
--- NOTE | 2019-10-15 15:24 | NUR ---
NOTED PROCEDURE FOR TOMORROW. ATTEMPTED TO CONTACT PTS FAMILY TO OBTAIN CONSENTS. NO ANSWER NOTED WHEN CALLED EMERGENCY CONTACT NUMBER. VOICEMAIL LEFT.
--- NOTE | 2019-10-15 15:28 | NUR ---
ATTEMPTED TO CALL SECOND NUMBER OF EMERGENCY CONTACT OF [phone] AND RECIEVED A VERIZON MESSAGE THAT SAID THE "THE NUMBER YOU HAVE DIALED HAS CALLING RESTRICTIONS THAT HAVE PRESENTED THE COMPLETION OF YOUR CALL."
--- NOTE | 2019-10-15 15:43 | NUR ---
RECIEVED CALLBACK FROM PTS SISTER LANI GREENE AT [phone]. UPDATES PROVIDED, PTS SISTER GAVE CONSENT FOR PROCEDURE TOMORROW, CONFIRMED BY SECOND NURSE. NO ACUTE DISTRESS NOTED. VSS. WILL CONTINUE PLAN OF CARE.
[2019-10-15 17:12] LABS: BASOPHILS 0.1 % (0-2); EOSINOPHILS 0 % (0-7); HEMATOCRIT 26.9 % (42.0-54.0); HEMOGLOBIN 8.9 g/dL (13.5-17.5); IMMATURE GRANULOCYTES 0.6 % (0-5); MCH 30.8 pg (26.0-34.0); MCHC 33.1 g/dL (31.0-37.0); MEAN PLATELET VOLUME 10.7 fL (7.4-10.4); MONOCYTES 20.7 % (2-11); NEUTROPHILS 69.6 % (40-80); PLATELET COUNT 93 10x3/uL (130-400); RBC 2.89 10x6/uL (4.20-6.10); RDW 14.9 % (11.5-14.5); WBC 10.5 10x3/uL (4.8-10.8)
[2019-10-15 17:13] LABS: MCV 93.1 fL (80.0-100.0)
--- NOTE | 2019-10-15 17:15 | NUR ---
NO ACUTE DISTRESS NOTED. NO CHANGE. VSS. WILL CONTINUE PLAN OF CARE.
[2019-10-15 17:37] LABS: PLATELET ESTIMATE DECREASED
[2019-10-16] VITALS (27 sets, daily range): BP systolic 90–127; BP diastolic 50–76
[2019-10-16 05:02] LABS: BASOPHILS 0.1 % (0-2); EOSINOPHILS 0.1 % (0-7); HEMATOCRIT 25.4 % (42.0-54.0); HEMOGLOBIN 8.2 g/dL (13.5-17.5); IMMATURE GRANULOCYTES 0.6 % (0-5); LYMPHOCYTES 15.1 % (15-50); MCH 30.5 pg (26.0-34.0); MCHC 32.3 g/dL (31.0-37.0); MCV 94.4 fL (80.0-100.0); MEAN PLATELET VOLUME 10.7 fL (7.4-10.4); MONOCYTES 17.3 % (2-11); NEUTROPHILS 66.8 % (40-80); PLATELET COUNT 95 10x3/uL (130-400); RBC 2.69 10x6/uL (4.20-6.10); RDW 15.1 % (11.5-14.5); WBC 10.3 10x3/uL (4.8-10.8)
[2019-10-16 05:07] LABS: APTT 28.3 SECONDS (22.8-39.4); INR 1.21 (0.85-1.17); PROTIME 14.7 SECONDS (11.6-15.0)
--- NOTE | 2019-10-16 05:10 | NUR ---
CHG BATH AND COMPLETE LINEN CHANGE DONE, PT TOLERATED WITHOUT DIFFICULTY. VSS
[2019-10-16 05:25] LABS: ALBUMIN 1.5 g/dL (3.4-5.0); ALKALINE PHOSPHATASE 28 U/L (46-116); ALT (SGPT) 47 U/L (10-68); BILIRUBIN - TOTAL 5.33 mg/dL (0.2-1.3); CALC OSMOLALITY 293 mosm/kg (275-300); CALCIUM 7.5 mg/dL (8.5-10.1); CARBON DIOXIDE 31.5 mmol/L (21.0-32.0); CHLORIDE - SERUM 112 mmol/L (98-107); CREATININE - SERUM 0.7 mg/dL (0.6-1.3); GLUCOSE 137 mg/dL (74-106); PROTEIN - SERUM 4.2 g/dL (6.4-8.2); SODIUM 146 mmol/L (136-145); UREA NITROGEN 16 mg/dL (7-18); eGFR NON AFRICAN AMERICAN > 90 mL/min (90-120)
--- NOTE | 2019-10-16 08:32 | NUR ---
LYING IN BED ON VENT AT THIS TIME. VSS. NOTED PT TO GO TO OR LATER TODAY. NO ACUTE DISTRESS NOTED. WILL CONTINUE PLAN OF CARE.
--- NOTE | 2019-10-16 11:20 | NUR ---
LEFT TO OR AT THIS TIME VIA BED ACCOMPANIED BY OR STAFF ON MONITOR. VSS. BLOOD INFUSING. NO ACUTE DISTRESS NOTED.
--- NOTE | 2019-10-16 11:53 | NUR ---
PT PACKED WITH [address] VILLAFANA. THOSE 9 REMOVED AT BEGINNING OF SURGERY AND TAKEN OFF THE FIELD PER SUNSHINE STANLEY
--- NOTE | 2019-10-16 12:06 | NUR ---
PT TRANSPORTED TO AND FROM ICU WITH MONITORS, O2 AND AMBU
--- NOTE | 2019-10-16 12:25 | NUR ---
PT ARRIVED TO UNIT AT THIS TIME VIA BED. VSS. MIDLINE INCISION DRESSING CDI. NO ACUTE DISTRESS NOTED. WILL CONTINUE PLAN OF CARE.
[2019-10-16 17:10] LABS: BASOPHILS 0.1 % (0-2); EOSINOPHILS 0.3 % (0-7); HEMATOCRIT 28.1 % (42.0-54.0); HEMOGLOBIN 9.1 g/dL (13.5-17.5); IMMATURE GRANULOCYTES 0.4 % (0-5); LYMPHOCYTES 14.3 % (15-50); MCH 30.6 pg (26.0-34.0); MCHC 32.4 g/dL (31.0-37.0); MCV 94.6 fL (80.0-100.0); MEAN PLATELET VOLUME 11.3 fL (7.4-10.4); MONOCYTES 14.7 % (2-11); NEUTROPHILS 70.2 % (40-80); PLATELET COUNT 103 10x3/uL (130-400); RBC 2.97 10x6/uL (4.20-6.10); WBC 9.2 10x3/uL (4.8-10.8)
[2019-10-17] VITALS (23 sets, daily range): BP systolic 102–156; BP diastolic 58–87
[2019-10-17 05:40] LABS: BASOPHILS 0.1 % (0-2); HEMATOCRIT 28.7 % (42.0-54.0); HEMOGLOBIN 9.2 g/dL (13.5-17.5); IMMATURE GRANULOCYTES 0.7 % (0-5); LYMPHOCYTES 10.7 % (15-50); MCH 30.6 pg (26.0-34.0); MCHC 32.1 g/dL (31.0-37.0); MCV 95.3 fL (80.0-100.0); MEAN PLATELET VOLUME 11.5 fL (7.4-10.4); MONOCYTES 14.9 % (2-11); NEUTROPHILS 71.6 % (40-80); PLATELET COUNT 120 10x3/uL (130-400); RBC 3.01 10x6/uL (4.20-6.10); RDW 15.6 % (11.5-14.5); WBC 9.7 10x3/uL (4.8-10.8)
--- NOTE | 2019-10-17 06:00 | NUR ---
COMPLETE CHG BATH AND LINEN CHANGE DONE, PT TOLERATED WITHOUT DIFFICULTY, VSS.
[2019-10-17 06:04] LABS: ALBUMIN 1.4 g/dL (3.4-5.0); ALKALINE PHOSPHATASE 36 U/L (46-116); ALT (SGPT) 47 U/L (10-68); BILIRUBIN - TOTAL 7.98 mg/dL (0.2-1.3); CALC OSMOLALITY 296 mosm/kg (275-300); CALCIUM 7.6 mg/dL (8.5-10.1); CARBON DIOXIDE 32.6 mmol/L (21.0-32.0); CHLORIDE - SERUM 112 mmol/L (98-107); CREATININE - SERUM 0.6 mg/dL (0.6-1.3); GLUCOSE 135 mg/dL (74-106); POTASSIUM - SERUM 3.4 mmol/L (3.5-5.1); PROTEIN - SERUM 4.4 g/dL (6.4-8.2); SODIUM 148 mmol/L (136-145); UREA NITROGEN 14 mg/dL (7-18); eGFR NON AFRICAN AMERICAN > 90 mL/min (90-120)
[2019-10-17 06:17] LABS: INR 1.12 (0.85-1.17); PROTIME 13.9 SECONDS (11.6-15.0)
--- NOTE | 2019-10-17 07:00 | NUR ---
REPORT RECEIVED. ASSESSMENT COMPLETE PER FLOW SHEET. VSS. REFER FOR FINDNIGS. WILL CONTINUE TO MONITOR
--- NOTE | 2019-10-17 08:08 | OP ---
PATIENT NAME: RUTH SANTIAGO MEDICAL RECORD: [id number] :64 LOCATION:.[facility] D.2311 ADMISSION DATE:10/07/19 SURGEON: DIAN VILLAFANA MD DATE OF OPERATION: 10/16/2019 SURGEON: Dian Villafana MD PREOPERATIVE DIAGNOSES: 1. Perforated diverticulitis. 2. Colovesical fistula. 3. Alcoholism. 4. Acute blood loss anemia. 5. Coagulopathy POSTOPERATIVE DIAGNOSES: 1. Perforated diverticulitis. 2. Colovesical fistula. 3. Alcoholism. 4. Acute blood loss anemia. 5. Coagulopathy PROCEDURE PERFORMED: 1. Abdominal washout with removal of abdominal packing. 2. Delayed primary abdominal closure. ANESTHESIA: General. COMPLICATIONS: None. SPECIMENS: None. Case was clean. OPERATIVE COURSE: After consent was obtained, the patient was taken to the operating room and placed in supine position on the operating room table. Next, general anesthesia was given. The abdomen was prepped and draped in typical sterile fashion. Time was taken to confirm the correct patient and procedure. The intra-abdominal ABThera wound VAC was removed. The bowel was irrigated with 4 liters of warmed normal saline. The previous laparotomy pads every used for intraabdominal packing were removed and passed off the field. At this time, the abdomen was again irrigated with warm normal saline and suctioned. The small bowel was run from the ligament of Treitz to the terminal ileum. There is no evidence of bile injury, no evidence of bleeding, no evidence of succuss. The small bowel anastomosis appeared healthy and intact. The colon was run in its entirety to the colostomy. The left and right upper quadrants were examined. There was no evidence of bleeding. The abdominal cavity appeared quite dry. The spleen and liver were markedly nodular on palpation and in appearance. The pelvis was meticulously inspected. The bladder repair appeared intact and healing well. The rectal stump was viable. There was no active bleeding within the pelvis. At this time, Gabriela powder was applied to the raw surfaces of the pelvis from the previous sigmoid colectomy and repair of colovesical fistula. The abdomen was closed with #1 looped PDS. Skin was closed with izaiah. During the case, all needle and needle counts were correct. The patient was transferred to the ICU in stable condition. OPERATIVE REPORT [id number] RUTH SANTIAGO TRANSINT:[id number] Voice Confirmation ID: [id number] DOCUMENT ID: [id number] DIAN VILLAFANA MD at 0808 CC: [id number] DICTATION DATE: 10/16/19 1240 TELEPHONE SALES AGENT: 10/16/19 1611 ADM IN [facility] [address] [place] [address]
--- NOTE | 2019-10-17 08:15 | NUR ---
DR VILLAFANA AT BEDSIDE GIVEN UDPATE.
--- NOTE | 2019-10-17 08:38 | NUR ---
PT SELF EXTUBATED AT THIS TIME. DR GAYLE AT BEDSIDE RT AT BEDSIDE PLACED ON 6L NC O2 SAT 96% RR 22 NO S/S DISTRESS. DR VILLAFANA PAGED GIVEN UPDATE.
--- NOTE | 2019-10-17 09:28 | NUR ---
Nutrition follow-up: Pt just self-extubated; breathing well on his own NPO NGT->LIWS Labs reviewed Wt: 178# s/p abdominal closure 10/16 RDN following for diet advancement
--- NOTE | 2019-10-17 09:35 | NUR ---
G REVIEWED DR GAYLE GIVEN UPDATE. WILL CONTINUE TO MONITOR
--- NOTE | 2019-10-17 11:00 | NUR ---
REASSESSMENT COMPLETE PER FLOW SHEET. VSS. NO NEW CHANGES WILL CONTINUE TO MONITOR
--- NOTE | 2019-10-17 13:00 | NUR ---
COMPLETE BB LINEN CHANGE. NO NEW CHANGES WILL CONTINUE TO MONITOR
--- NOTE | 2019-10-17 14:00 | NUR ---
PT WITH PT AT THIS TIME. WALKED 10 STEPS. BACK TO BED. GIVEN ICE CHIPS PER REQUEST. DENIES NEEDS WILL CONTINUE TO MONITOR
--- NOTE | 2019-10-17 15:00 | NUR ---
REASSESSMENT COMPLETE PER FLOW SHEET. VSS. NO NEW CHANGES WILL CONTINUE TO MONITOR
--- NOTE | 2019-10-17 19:00 | NUR ---
REPORT RECEIVED FROM OFF GOING NURSE. PT IS LAYING IN BED WATCHING TV AND CALLING OUT TO STAFF CONTINOUSLY AT THIS TIME. NO NEEDS NOTED. INITIAL ASSESSMENT COMPLETED, SEE FLOWSHEET FOR DETAILS. NO S/S OF DISTRESS. WILL CONTINUE TO MONITOR.
--- NOTE | 2019-10-17 21:00 | NUR ---
PT IS LAYING IN BED WATCHING TV. OCCASIONALLY YELLING OUT TO STAFF STILL. NO NEEDS NOTED. NO S/S OF DISTRESS. WILL CONTINUE TO MONITOR.
--- NOTE | 2019-10-17 23:00 | NUR ---
REASSESSMENT COMPLETED, SEE FLOWSHEET FOR DETAILS. PT IS LAYING IN BED WATCHING TV. OCCASSSIONALLY YELLS OUT AT STAFF. PT REQUESTS TO GET DRUNK. NO NEEDS NOTED. NO S/S OF DISTRESS. WILL CONTINUE TO MONITOR.
[2019-10-18] VITALS (19 sets, daily range): BP systolic 116–167; BP diastolic 71–94
--- NOTE | 2019-10-18 01:00 | NUR ---
PT IS LAYING IN BED WITH EYES CLOSED AT THIS TIME. NO NEEDS NOTED. NO S/S OF DISTRESS. WILL CONTINUE TO MONITOR.
--- NOTE | 2019-10-18 03:00 | NUR ---
REASSESSMENT COMPLETED, SEE FLOWSHEET FOR DETAILS. PT IS LAYING IN BED WITH EYES CLOSED AT THIS TIME. NO NEEDS NOTED. NO S/S OF DISTRESS. WILL CONTINUE TO MONITOR.
[2019-10-18 04:52] LABS: INR 1.24 (0.85-1.17); PROTIME 15.1 SECONDS (11.6-15.0)
[2019-10-18 05:01] LABS: ALBUMIN 1.6 g/dL (3.4-5.0); ALKALINE PHOSPHATASE 44 U/L (46-116); BILIRUBIN - TOTAL 9.84 mg/dL (0.2-1.3); CALC OSMOLALITY 297 mosm/kg (275-300); CALCIUM 7.5 mg/dL (8.5-10.1); CARBON DIOXIDE 29.4 mmol/L (21.0-32.0); CHLORIDE - SERUM 113 mmol/L (98-107); CREATININE - SERUM 0.6 mg/dL (0.6-1.3); GLUCOSE 112 mg/dL (74-106); PROTEIN - SERUM 4.6 g/dL (6.4-8.2); SODIUM 149 mmol/L (136-145); UREA NITROGEN 15 mg/dL (7-18); eGFR NON AFRICAN AMERICAN > 90 mL/min (90-120)
[2019-10-18 05:05] LABS: ALT (SGPT) 59 U/L (10-68); POTASSIUM - SERUM 2.9 mmol/L (3.5-5.1)
--- NOTE | 2019-10-18 07:15 | NUR ---
REPORT RECEIVED. ASSESSMENT COMPLETE PER FLOW SHEET. VSS. NO NEW CHANGES PT RESTING COMFORTABLY WILL CONTINUE TOMONITOR
[2019-10-18 08:05] LABS: BASOPHILS 0.1 % (0-2); EOSINOPHILS 0.4 % (0-7); HEMATOCRIT 26.1 % (42.0-54.0); HEMOGLOBIN 8.6 g/dL (13.5-17.5); IMMATURE GRANULOCYTES 1.4 % (0-5); LYMPHOCYTES 12.1 % (15-50); MCH 30.5 pg (26.0-34.0); MEAN PLATELET VOLUME 10.8 fL (7.4-10.4); MONOCYTES 12.1 % (2-11); NEUTROPHILS 73.9 % (40-80); PLATELET COUNT 142 10x3/uL (130-400); RBC 2.82 10x6/uL (4.20-6.10); RDW 14.6 % (11.5-14.5); WBC 10.4 10x3/uL (4.8-10.8)
--- NOTE | 2019-10-18 08:16 | NUR ---
DR VILLAFANA AT BEDSIDE GIVEN UDPATE REGAURDING STOMA SITE AND L LAT CHEST BRUISING NEW ORDERS RECEIVCED. WILL CONTINUE TO MONITOR
[2019-10-18 08:17] LABS: MCV 92.6 fL (80.0-100.0)
--- NOTE | 2019-10-18 08:49 | EC ---
PATIENT:RUTH SANTIAGO DATE OF SERVICE: 10/07/19 SEX: M MEDICAL RECORD: [id number] DATE OF : 64 LOCATION:[place] [address] AGE OF PATIENT: 59 ADMISSION DATE: 10/07/19 REFERRING PHYSICIAN: INTERPRETING PHYSICIAN: LYNN TABOR MD ECHOCARDIOGRAM REPORT ECHO CHARGES 4 ECHO COMPLETE Date: 10/14/19 CLINICAL DIAGNOSIS: A-FIB ECHOCARDIOGRAPHIC MEASUREMENTS (adult normal given) AC root (d.<3.7cm) 3.4 cm LV Septum d (<1.2 cm> 0.9 cm Valve Excursion 2.1 cm LV Septum (systole) 1.1 cm Left Atria (s.<4.0cm> 3.5 cm LVPW d(<1.2cm) 1.0 cm RV (d.<2.3cm) 2.2 cm LVPW (sytole) 1.7 cm LV diastole(<5.6CM) 5.4 cm MV E-F(>70mm/sec) cm LV systole 3.6 cm LVOT Diameter 2.1 cm MV exc.(>10mm) cm Est.ejection fraction (50-75%) % DOPPLER: LVIT cm/sec A 74.0 cm/sec E 58.0 cm/sec LA cm/sec RVSP 18.0 mmHg LVOT 115 cm/sec AOP1/2T m/s Asc. Ao 132 cm/sec RVOT 55.0 cm/sec RA cm/sec PA 96.0 cm/sec AV Gradient Peak 7.0 mmHg AV Mean 3.3 mmHg AV Area 2.5 cm MV Gradient Peak 3.2 mmHg MV Mean 1.5 mmHg MV Area cm COMMENTS: National Recruiter: 1 KARRIE HOGUEOE Ribbon Cutter: 3 Dr. Dejesus TAPE# PACS Pericardial Effusion N DATE OF SERVICE: Adequate 2D echo, color flow imaging, spectral Doppler, and M-Mode No LVH. LV internal dimension is normal. Wall motion is normal. EF is greater than or equal to 55%. Aortic valve is tricuspid. No evidence of stenosis by Doppler interrogation. Left atrium is normal at 3.5 cm. Mitral valve shows no prolapse. Trace MR. Right-sided chambers are grossly normal. Mild TR. TRANSINT:[id number] Voice Confirmation ID: [id number] DOCUMENT ID: [id number] ECHOCARDIOGRAM REPORT [id number] RUTH SANTIAGO GREGORY A MD at 0849 CC: [id number] DICTATION DATE: 10/15/19 1027 HOSE COUPLING JOINER: 10/15/19 1141 ADM IN [place] [id number] [place] [id number]
--- NOTE | 2019-10-18 09:15 | NUR ---
PT TO RADIOLOGY AT THIS TIME. VSS. WILL CONTINUE TO MONITOR
--- NOTE | 2019-10-18 11:05 | NUR ---
REASSESSMENT COMPLETE PER FLOW SHEET. VSS. NO NEW CHANGES WILL CONTINUE TO MONITOR
--- NOTE | 2019-10-18 13:08 | NUR ---
PT REPOSITIONED FOR COMFORT. REFUSED TO EAT. COLOSTOMY DRAINED 500CC REMOVED. WILL CONTINUE TO MONITOR
--- NOTE | 2019-10-18 15:00 | NUR ---
REASSESSMENT COMPLETE PER FLOW SHEET. VSS. NO NEW CHANGES WILL CONTINUE TO MONITOR
[2019-10-18 16:08] LABS: HEPATITIS C ANTIBODY >11.0 (0.0-0.9)
--- NOTE | 2019-10-18 17:00 | NUR ---
COMPLETE BB LINEN CHANGE ADM. WILL CONTINUE TO MONITOR
--- NOTE | 2019-10-18 19:00 | NUR ---
BEDSIDE REPORT AND SHIFT ASSESSMENT COMPLETE, SEE FLOWSHEET. VSS, NO SIGNS OF ACUTE DISTRESS NOTED. ABD INCISION WNL, MARION IN TACT. PT CONFUSED, LETHARGIC, FOLLOWS COMMANDS. L WRIST PIV SALINE LOCKED, R HAND PIV INFUSING IV FLUIDS, SEE IV FLOWSHEET. BED IN LOWEST POSITION, CALL LIGHT IN REACH. WILL MONITOR.
--- NOTE | 2019-10-18 21:00 | NUR ---
PT AGITATED, MOVING AROUND IN BED, TRYING TO PULL AT LINES AND ATTEMPTING TO GET UP. PT DIAPHORETIC, FLUSHED, WARM TO TOUCH. FSBS 138. ROOM TEMP TURNED DOWN. BILAT SOFT WRIST RESTRAINTS IN PLACE. BED IN LOWEST POSITION, WILL MONITOR.
[2019-10-18 22:48] LABS: BASOPHILS 0.1 % (0-2); EOSINOPHILS 0.4 % (0-7); HEMATOCRIT 23.7 % (42.0-54.0); HEMOGLOBIN 7.7 g/dL (13.5-17.5); IMMATURE GRANULOCYTES 1.6 % (0-5); LYMPHOCYTES 11.4 % (15-50); MCH 30.1 pg (26.0-34.0); MCHC 32.5 g/dL (31.0-37.0); MCV 92.6 fL (80.0-100.0); MEAN PLATELET VOLUME 10.4 fL (7.4-10.4); MONOCYTES 12.2 % (2-11); NEUTROPHILS 74.3 % (40-80); PLATELET COUNT 155 10x3/uL (130-400); RBC 2.56 10x6/uL (4.20-6.10); RDW 14.8 % (11.5-14.5); WBC 9.4 10x3/uL (4.8-10.8)
--- NOTE | 2019-10-18 23:00 | NUR ---
REASSESSMENT COMPLETE, SEE FLOWSHEET. NEW BRUISING NOTED AROUND ABD INCISION SITE. BILAT WRIST RESTRAINTS IN PLACE. WILL CONTINUE TO MONITOR.
--- NOTE | 2019-10-18 23:20 | NUR ---
SPOKE WITH DR MONSIVAIS ABOUT CRITICAL LAB, NEW ORDERS RECEIVED. WILL CONTINUE TO MONITOR.
[2019-10-19] VITALS (24 sets, daily range): BP systolic 120–153; BP diastolic 76–91
--- NOTE | 2019-10-19 01:00 | NUR ---
PT AGITATED, MOVING AROUND IN BED. PAIN MEDS GIVEN PER MAR. VSS, NO SIGNS OF ACUTE DISTRESS NOTED. WILL MONITOR.
--- NOTE | 2019-10-19 03:00 | NUR ---
REASSESSMENT COMPLETE, SEE FLOWSHEET. VSS, NO SIGNS OF ACUTE DISTRESS NOTED. BED IN LOWEST POSITION, BED ALARM ON. WILL CONTINUE TO MONITOR.
[2019-10-19 04:21] LABS: APTT 22.9 SECONDS (22.8-39.4); INR 1.17 (0.85-1.17); PROTIME 14.4 SECONDS (11.6-15.0)
[2019-10-19 04:28] LABS: ALBUMIN 1.6 g/dL (3.4-5.0); ALKALINE PHOSPHATASE 46 U/L (46-116); ALT (SGPT) 72 U/L (10-68); BILIRUBIN - TOTAL 8.69 mg/dL (0.2-1.3); CALC OSMOLALITY 294 mosm/kg (275-300); CALCIUM 7.3 mg/dL (8.5-10.1); CARBON DIOXIDE 30.9 mmol/L (21.0-32.0); CHLORIDE - SERUM 112 mmol/L (98-107); CREATININE - SERUM 0.6 mg/dL (0.6-1.3); GLUCOSE 125 mg/dL (74-106); PROTEIN - SERUM 4.8 g/dL (6.4-8.2); SODIUM 147 mmol/L (136-145); UREA NITROGEN 18 mg/dL (7-18); eGFR NON AFRICAN AMERICAN > 90 mL/min (90-120)
[2019-10-19 04:32] LABS: BASOPHILS 0.2 % (0-2); EOSINOPHILS 1.4 % (0-7); HEMATOCRIT 25.3 % (42.0-54.0); HEMOGLOBIN 8.2 g/dL (13.5-17.5); MCH 30.5 pg (26.0-34.0); MCHC 32.4 g/dL (31.0-37.0); MCV 94.1 fL (80.0-100.0); MEAN PLATELET VOLUME 10.7 fL (7.4-10.4); MONOCYTES 12.2 % (2-11); NEUTROPHILS 70.2 % (40-80); PLATELET COUNT 154 10x3/uL (130-400); POTASSIUM - SERUM 4.6 mmol/L (3.5-5.1); RBC 2.69 10x6/uL (4.20-6.10); RDW 14.9 % (11.5-14.5); WBC 9.3 10x3/uL (4.8-10.8)
--- NOTE | 2019-10-19 05:00 | NUR ---
LEÓN CARE COMPLETE. VSS, NO SIGNS OF ACUTE DISTRESS NOTED.
--- NOTE | 2019-10-19 07:15 | NUR ---
REPORT RECEIVED. ASSESSMENT COMPLETE PER FLOW SHEET. VSS. NO NEW CHANGES. PT RESTING COMFORTABLY WILL CONTINUE TO MONITOR
--- NOTE | 2019-10-19 09:39 | NUR ---
DR RUSS AT BEDSIDE. GIVEN UPDATE. NO NEW ORDERS AT THIS TIME. WILL CONTINUE TO MONITOR
--- NOTE | 2019-10-19 09:47 | NUR ---
NUTRITION F/U CHART REVIEWED. DIET ADVANCED TO FULL LIQUID LUNCH. WILL CONTINUE TO PROVIDE DIET, MONITOR PT PROGRESS. RD FOLLOWING
--- NOTE | 2019-10-19 11:30 | NUR ---
REASSESSMENT COMPLETE PER FLOW SHEET. VSS. NO NEW CHANGES WILL CONTINUE TO MONITOR
--- NOTE | 2019-10-19 15:30 | NUR ---
REASSESSMENT COMPLETE PER FLOW SHEET. VSS. NO NEW CHANGES WILL CONTINUE TO MONTIOR
--- NOTE | 2019-10-19 19:00 | NUR ---
BEDSIDE REPORT AND SHIFT ASSESSMENT COMPLETE, SEE FLOWSHEET. VSS, NO SIGNS OF ACUTE DISTRESS NOTED. PT ORIENTED TO PERSON, SPEECH SLURRED. DENIES ANY NEEDS AT THIS TIME. WILL MONITOR.
--- NOTE | 2019-10-19 21:00 | NUR ---
PT CALLING OUT LOUD WHEN PEOPLE WALK BY ROOM, ASKING FOR HELP. WHEN ASKED WHAT HE NEED HE SAYS "HELP ME GET OUT OF HERE" I ATTEMPTED TO REORIENT HIM. HE STATED HE WAS IN PAIN, PRN MEDS GIVEN PER MAR. VSS, NO SIGNS OF ACUTE DISTRESS NOTED. WILL MONITOR.
--- NOTE | 2019-10-19 23:00 | NUR ---
REASSESSMENT COMPLETE, SEE FLOWSHEET. VSS, NO SIGNS OF ACUTE DISTRESS NOTED. BILAT WRIST RESTRAINTS IN PLACE, PT ATTEMPTING TO CLIMB OOB, REORIENTED. WILL MONITOR.
[2019-10-20] VITALS (24 sets, daily range): BP systolic 107–140; BP diastolic 68–85
--- NOTE | 2019-10-20 01:00 | NUR ---
PT SLEEPING. VSS. WILL MONITOR.
--- NOTE | 2019-10-20 03:00 | NUR ---
REASSESSMENT COMPLETE, SEE FLOWSHEET. PT CONFUSED, ATTEMPTING TO CLIMB OOB. BILAT WRIST RESTRAINTS IN PLACE. REORIENTED AND PUT PT'S LEGS BACK IN BED. WILL CONTINUE TO MONITOR.
[2019-10-20 03:45] LABS: BASOPHILS 0.2 % (0-2); EOSINOPHILS 2.2 % (0-7); HEMATOCRIT 28.2 % (42.0-54.0); HEMOGLOBIN 9.1 g/dL (13.5-17.5); IMMATURE GRANULOCYTES 3.6 % (0-5); LYMPHOCYTES 16.1 % (15-50); MCH 29.9 pg (26.0-34.0); MCHC 32.3 g/dL (31.0-37.0); MCV 92.8 fL (80.0-100.0); MEAN PLATELET VOLUME 10.5 fL (7.4-10.4); MONOCYTES 10.8 % (2-11); NEUTROPHILS 67.1 % (40-80); PLATELET COUNT 178 10x3/uL (130-400); RBC 3.04 10x6/uL (4.20-6.10); RDW 14.4 % (11.5-14.5); WBC 9.8 10x3/uL (4.8-10.8)
[2019-10-20 04:01] LABS: ALBUMIN 1.6 g/dL (3.4-5.0); ALKALINE PHOSPHATASE 52 U/L (46-116); ALT (SGPT) 80 U/L (10-68); BILIRUBIN - TOTAL 7.11 mg/dL (0.2-1.3); CALCIUM 7.3 mg/dL (8.5-10.1); CARBON DIOXIDE 29.9 mmol/L (21.0-32.0); CHLORIDE - SERUM 102 mmol/L (98-107); CREATININE - SERUM 0.5 mg/dL (0.6-1.3); GLUCOSE 130 mg/dL (74-106); PROTEIN - SERUM 4.8 g/dL (6.4-8.2); SODIUM 140 mmol/L (136-145); eGFR NON AFRICAN AMERICAN > 90 mL/min (90-120)
[2019-10-20 04:08] LABS: CALC OSMOLALITY 279 mosm/kg (275-300); POTASSIUM - SERUM 2.9 mmol/L (3.5-5.1); UREA NITROGEN 10 mg/dL (7-18)
--- NOTE | 2019-10-20 05:00 | NUR ---
VSS, NO SIGNS OF ACUTE DISTRESS NOTED. PT C/O PAIN EVERYWHERE - PRN PAIN MEDS GIVEN PER MAR.
--- NOTE | 2019-10-20 07:00 | NUR ---
BEDSIDE REPORT RECEIEVED. SHIFT ASSESSMENT COMPLETED PER FLOWSHEET, SEE FLOWSHEET FOR INFORMATION. NO ACUTE NEEDS OR DISTRESS NOTED AT THIS TIME. VSS. WILL CONT TO MONITOR.
--- NOTE | 2019-10-20 09:00 | NUR ---
AT BEDSIDE. NEW ORDERS RECEIEVED. WILL CONT TO MONITOR.
--- NOTE | 2019-10-20 09:50 | NUR ---
PT EXTUBATED PER RT. VSS. WILL CONT TO MONITOR.
--- NOTE | 2019-10-20 10:21 | NUR ---
PHYSICAL THERAPY AT BEDSIDE. WILL CONT TO MONITOR.
--- NOTE | 2019-10-20 11:00 | NUR ---
AT BEDSIDE. REASSESSMENT COMPLETED PER FLOWSHEET, SEE FLOWSHEET FOR INFORMATION. WILL CONT TO MONITOR.
--- NOTE | 2019-10-20 13:00 | NUR ---
PT GIVEN PUDDING AND JELLO. SAT PT UP TO EAT, PT THEN STATED "PUT MY HEAD BACK DOWN, THIS IS TOO HIGH" INSTRUCTED PT ON HOW LAYING BACK WHILE EATING IS A MAJOR CHOKING HAZARD. VSS. WILL CONT TO MONITOR.
--- NOTE | 2019-10-20 15:00 | NUR ---
REASSESSMENT COMPLETED PER FLOWSHEET, SEE FLOWSHEET FOR INFORMATION. NO ACUTE NEEDS OR DISTRESS NOTED AT THIS TIME. VSS. WILL CONT TO MONITOR.
--- NOTE | 2019-10-20 15:36 | MORECARE ---
CASE MANAGEMENT DISCHARGE SUMMARY PATIENT: RUTH SANTIAGO UNIT: [id number] ADM DATE: 10/07/19 AGE: 59 : 64 SEX: M ROOM/BED: D.2311 AUTHOR: AARONDOC PHYSICIAN: REFERRING PHYSICIAN: IRAJ RUSS MD DATE OF SERVICE: 10/20/19 Discharge Plan Patient Name: RUTH SANTIAGO Facility: [facility]:[place] : 1960 Planned Disposition: Home or Self Care Anticipated Discharge Date: Discharge Date: Expected LOS: Initial Reviewer: [email or web address] Initial Review Date: 10/07/2019 Generated: 10/20/19 4:36 pm Comments DCP- Discharge Planning Updated by [email or web address]: Yoana Dumont on 10/20/19 2:[address] late entry 10/19/19 CM spoke with patients sister Radha Chaudhry [phone] regarding discharge planning. CM explained that patient would not be able to return home alone at this point. Radha stated that she understood and that he would need to be placed in a chcf care facility. Patient is confused and unable to make decisions at this time. Radha stated that she had no preference of facility other than she would like it to be local. NAYAN signed. CM will continue to follow and assist as needed with discharge planning needs. DCP- Discharge Planning Updated by [email or web address]: Bettye Gee on 10/12/19 10:[address] Patient Name: RUTH SANTIAGO Admission Status: ER Accout number: [id number] Admission Date: 10-07-2019 : 1960 Admission Diagnosis: Attending: IRAJ RUSS Current LOS: 5 Anticipated DC Date: Planned Disposition: Home or Self Care Primary Insurance: MEDICAID [place] Discharge Planning Comments: CM met with patient to complete initial dc planning assessment. CM educated patient on the CM role and verbal consent given by patient to complete assessment. Patient lives at home where he is independent with his care. At discharge patient plans to return home and feels this is a safe discharge. He said his friend Les would be his local city driver home. CM discussed availability of home health, rehab services, and medical equipment. I am unsure of potential needs till his surgery is done. Patient denied known discharge needs at this time. CM will continue to follow and will assist as needed with dc plans/needs. Senior Applications Architect: Bettye Gee DCPIA - Discharge Planning Initial Assessment Updated by [id number]: Bettye Gee on 10/12/19 11:50 am * Is the patient Alert and Oriented? Yes * How many steps to enter\exit or inside your home? 06/30 * PCP JEB * Pharmacy [facility] ON [address] * Preadmission Environment Home Alone * ADLs Independent * Equipment None * List name and contact numbers for known caregivers / representatives who currently or will assist patient after discharge: RADHA CHAUDHRY (SISTER) [phone] * Verbal permission to speak to the caregivers and representatives has been obtained from the patient. N/A * Community resources currently utilized None * Additional services required to return to the preadmission environment? No * Can the patient safely return to the preadmission environment? Yes * Has this patient been hospitalized within the prior 30 days at any hospital? No Coverage Notice Reviewer: [id number] Misty Dumont Notice Issued Date-Time: 10/19/2019 11:20 Notice Type: Patient Choice Letter Notice Delivered To: Family Member Relationship to Patient: Sister Community Nurse Name: JOSUÉ CHAUDHRY Delivery Method: PHONE - Phone Sisi Days: Prior Verbal Notification: Recipient Understood Notice: Yes Recipient Signature: Yes Med Rec Note Co-signed by Attending: Coverage Notice Comment: Last DP export: 10/12/19 10:58 Patient Name: RUTH SANTIAGO Page [id number] at 1536 All edits/amendments must be made on the electronic document DICTATION DATE: 10/20/19 1535 AIRCRAFT POWER PLANT ASSEMBLER: SEBASTIAN 10/20/19 1535 RPT#: [id number] DC DATE: STATUS: ADM IN [facility] [address] [place] [address] END OF REPORT
--- NOTE | 2019-10-20 17:00 | NUR ---
PT RESTING IN BED WITH EYES CLOSED. NO ACUTE NEEDS OR DISTRESS NOTED AT THIS TIME. WILL CONT TO MONITOR. VSS.
--- NOTE | 2019-10-20 19:00 | NUR ---
BEDSIDE REPORT AND SHIFT ASSESSMENT COMPLETE. VSS, NO SIGNS OF ACUTE DISTRESS NOTED. PT CONFUSED, DISORIENTED TO TIME AND SITUATION. ABD INCISION WNL, MARION IN TACT. PRESSURE DRSNG IN PLACE TO LOWER INCISION, WNL. PT DENIES ANY PAIN OR NEEDS AT THIS TIME. CALL LIGHT IN REACH, WILL MONITOR.
--- NOTE | 2019-10-20 21:00 | NUR ---
MEDS GIVEN PER MAR AND TOLERATED BY PT. PT REQUESTING TO HAVE CURTAIN SHUT AND ALL LIGHTS OFF, I EXPLAINED I COULD NOT DO THIS AND NEEDED TO BE ABLE TO MONITOR HIM. HE SAID OK AND IS REQUESTING TO SLEEP. VSS, WILL MONITOR.
[2019-10-21] VITALS (24 sets, daily range): BP systolic 101–119; BP diastolic 61–79
--- NOTE | 2019-10-21 | NUR ---
REASSESSMENT COMPLETE, SEE MAR. VSS, NO SIGNS OF ACUTE DISTRESS NOTED. CHG BATH AND LINEN CHANGE COMPLETE. PT C/O PAIN, PRN MEDS GIVEN PER MAR. CALL LIGHT IN REACH, BED IN LOWEST POSITION, WILL CONTINUE TO MONITOR.
--- NOTE | 2019-10-21 01:00 | NUR ---
Gurdeep WRIST STEFANIE D/C'Racquel.
--- NOTE | 2019-10-21 03:00 | NUR ---
REASSESSMENT COMPLETE, SEE FLOWSHEET. PT SLEEPING, EASY TO AROUSE.
[2019-10-21 03:41] LABS: BASOPHILS 0.1 % (0-2); EOSINOPHILS 1.8 % (0-7); HEMATOCRIT 29.9 % (42.0-54.0); HEMOGLOBIN 9.6 g/dL (13.5-17.5); IMMATURE GRANULOCYTES 4.7 % (0-5); LYMPHOCYTES 13.5 % (15-50); MCH 30.1 pg (26.0-34.0); MCHC 32.1 g/dL (31.0-37.0); MCV 93.7 fL (80.0-100.0); MEAN PLATELET VOLUME 10.7 fL (7.4-10.4); MONOCYTES 9.3 % (2-11); NEUTROPHILS 70.6 % (40-80); PLATELET COUNT 212 10x3/uL (130-400); RBC 3.19 10x6/uL (4.20-6.10); WBC 10.1 10x3/uL (4.8-10.8)
[2019-10-21 03:58] LABS: ALBUMIN 1.5 g/dL (3.4-5.0); ALKALINE PHOSPHATASE 57 U/L (46-116); ALT (SGPT) 82 U/L (10-68); BILIRUBIN - TOTAL 4.78 mg/dL (0.2-1.3); CALC OSMOLALITY 276 mosm/kg (275-300); CALCIUM 7.4 mg/dL (8.5-10.1); CARBON DIOXIDE 29.4 mmol/L (21.0-32.0); CHLORIDE - SERUM 104 mmol/L (98-107); CREATININE - SERUM 0.6 mg/dL (0.6-1.3); GLUCOSE 121 mg/dL (74-106); POTASSIUM - SERUM 3.5 mmol/L (3.5-5.1); PROTEIN - SERUM 4.9 g/dL (6.4-8.2); SODIUM 139 mmol/L (136-145); UREA NITROGEN 8 mg/dL (7-18); eGFR NON AFRICAN AMERICAN > 90 mL/min (90-120)
--- NOTE | 2019-10-21 05:00 | NUR ---
MEDS GIVEN PER MAR. VSS, NO SIGNS OF ACUTE DISTRESS NOTED. CALL LIGHT IN REACH, WILL MONITOR.
--- NOTE | 2019-10-21 07:33 | NUR ---
report received. shift assessment complete. pt awake. some confusion noted. told me he was at [facility] when asked where he was. redness noted to lower end of midline abdominal incision. tender to touch.
--- NOTE | 2019-10-21 09:19 | NUR ---
NUTRITION F/U PT REPORTS HE DID NOT WANT BREAKFAST THIS AM. STATES HE WILL WAIT UNTIL LUNCH TO EAT. WILL CONTINUE TO PROVIDE REG DIET AND HONOR FOOD PREFERENCES. RD FOLLOWING
--- NOTE | 2019-10-21 09:26 | NUR ---
MORNING MEDICATIONS GIVEN. BREAKFAST TRAY OFFERED. PT DECLINED, SAYS MAYBE LATER.
--- NOTE | 2019-10-21 10:30 | NUR ---
PT HAS BEEN UP TO WALK WITH PHYSICAL THERAPY. SLOW, BUT STEADY.
--- NOTE | 2019-10-21 15:14 | NUR ---
DRESSING TO LOWER ABDOMEN CHANGED. SITE CLEANED WITH IODINE SWAB, NEW DRESSING APPLIED OVER INCISION. LEÓN CARE PROVIDED. NEW GOWN PLACED ON PATIENT. OSTOMY EMPTIED.
--- NOTE | 2019-10-21 15:50 | NUR ---
PATIENT RECEIVED TO BED VIA WHEELCHAIR, STANDBY ASSIST TO BED. ALERT AND ORIENTED X 4, LEÓN IN PLACE WITH ADELITA YELLOW UOP NOTED. IV 22 GAT TO RIGHT THUMB NOT PATENT. D/C'D AND NEW 20 GA IV X 1 ATTEMPT, POSITIVE BLOOD RETURN AND FLUSHES EASILY STARTED TO LEFT FA. IV INFUSING W/O DIFFICULTY INFUISNG D5LR WITH 20 MEQ OF POTASSIUM CHLORIDE. MID LINE ABDOMINAL INCISION WELL APPROXIMATED, WITH MARION, COLOECTOMY TO LEFT ABDOMEN WITH SMALL AMOUNT OF OF STOOL NOTED. SCDS PLACED. BBS - CLEAR AND EQUAL, SPO2 - 97% ON RA. BP - 102/58 (72), RR - 30, SHALLOW.
--- NOTE | 2019-10-21 16:38 | NUR ---
PATIENT GIVEN DINNER TRAY.
--- NOTE | 2019-10-21 18:11 | NUR ---
PATIENT RESTING QUIELTY WITH EYES CLOSED. VSS.
--- NOTE | 2019-10-21 19:00 | NUR ---
REPORT RECEIVED. RECEIVED PATIENT IN BED. AWAKE AND ALERT. ORIENTED TO PERSON/DAY WITH SOME CONFUSION TO PLACE AND SITUATION ORIENTS WELL. SPEECH CLEAR. ASSESSMENT COMPLETED PER FLOW SHEET WITH NO ACUTE DISTRESS OBSERVED. MONITORS CONNECTED TO PATIENT WITH ALARMS SET. VSS. CALL LIGHT IN REACH. IV FLUIDS/TUBING DATED/LABELED AND CURRENT.
--- NOTE | 2019-10-21 21:00 | NUR ---
AWAKE AND ALERT. PM MEDS TAKEN WITHOUT DIFF. VSS. NO DISTRESS OBSERVED
--- NOTE | 2019-10-21 23:00 | NUR ---
RESTING WITH EYES CLOSED, ROUSES EASILY. REASSESSMENT COMPLETED PER FLOW SHEET WITH NO ACUTE DISTRESS OBSERVED. VSS. CALL LIGHT IN REACH AND ABLE TO UTILIZE TO MAKE NEEDS KNOWN.
[2019-10-22] VITALS (19 sets, daily range): BP systolic 89–128; BP diastolic 46–70
--- NOTE | 2019-10-22 01:00 | NUR ---
NO CHANGES. VSS. CONT POC
--- NOTE | 2019-10-22 03:00 | NUR ---
REASSESSMENT COMPLETED PER FLOW SHEET WITH NO ACUTE DISTRESS OBSERVED . VSS. CALL LIGHT IN REACH.
--- NOTE | 2019-10-22 05:00 | NUR ---
RESTING WITH EYES CLOSED, EASILY ROUSED AND ALERT. VSS
[2019-10-22 05:28] LABS: BASOPHILS 0.2 % (0-2); EOSINOPHILS 1.1 % (0-7); HEMATOCRIT 29.3 % (42.0-54.0); HEMOGLOBIN 9.4 g/dL (13.5-17.5); IMMATURE GRANULOCYTES 4.2 % (0-5); LYMPHOCYTES 14.2 % (15-50); MCH 30.3 pg (26.0-34.0); MCHC 32.1 g/dL (31.0-37.0); MCV 94.5 fL (80.0-100.0); MEAN PLATELET VOLUME 10.2 fL (7.4-10.4); MONOCYTES 7.7 % (2-11); NEUTROPHILS 72.6 % (40-80); RDW 15.8 % (11.5-14.5)
[2019-10-22 05:31] LABS: PLATELET COUNT 256 10x3/uL (130-400)
[2019-10-22 05:43] LABS: ALBUMIN 1.6 g/dL (3.4-5.0); ALKALINE PHOSPHATASE 59 U/L (46-116); ALT (SGPT) 66 U/L (10-68); BILIRUBIN - TOTAL 3.05 mg/dL (0.2-1.3); CALC OSMOLALITY 277 mosm/kg (275-300); CALCIUM 7.3 mg/dL (8.5-10.1); CARBON DIOXIDE 25.8 mmol/L (21.0-32.0); CHLORIDE - SERUM 106 mmol/L (98-107); CREATININE - SERUM 0.6 mg/dL (0.6-1.3); GLUCOSE 133 mg/dL (74-106); POTASSIUM - SERUM 3.6 mmol/L (3.5-5.1); SODIUM 139 mmol/L (136-145); UREA NITROGEN 8 mg/dL (7-18); eGFR NON AFRICAN AMERICAN > 90 mL/min (90-120)
--- NOTE | 2019-10-22 08:11 | NUR ---
COLOSTOMY FULL. EMPTIED STOOL AND GAS. MEAL TRAY SERVED AND PT FEEDS SELF WITH MEAL TRAY SET UP AND ASST W/POSITIONING. C/O PAIN TO INCISION/ABD. NORCO GIVEN.
--- NOTE | 2019-10-22 18:19 | NUR ---
1300- ENCOURAGED PT TO SIT UP OOB. 1320- IV BEEPING. ENTER ROOM. PT PUTS SELF BACK TO BED. 1400- AMB W/PT.
--- NOTE | 2019-10-22 18:21 | NUR ---
PT OOB FOR DINNER. DSNG TO ABD SATURATED AND FRESH DSNG APPLIED.
--- NOTE | 2019-10-22 19:00 | NUR ---
RECEIVED REPORT. RECEIVED PATIENT IN BED. AWAKE ALERT AND ORIENTED X 3. WITH SOME CONFUSION TO SITUATION NOTED. SPEECH CLEAR. MONITORS CONNECTED TO PAITIENT WITH ALARMS SET. VSS. ASSESSMENT COMPLETED PER FLOW SHEET WITH NO ACUTE DISTRESS OBSERVED. CALL LIGHT IN REACH AND ABLE TO UTILIZE TO MAKE NEEDS KNOWN.
--- NOTE | 2019-10-22 21:00 | NUR ---
HOB UP 30 DEGREES. VSS. NO ACUTE DISTRESS OBSERVED
[2019-10-23 03:00] VITALS: BP 117/64
[2019-10-23 05:57] LABS: BASOPHILS 0.4 % (0-2); EOSINOPHILS 2.1 % (0-7); HEMATOCRIT 29.3 % (42.0-54.0); HEMOGLOBIN 9.3 g/dL (13.5-17.5); IMMATURE GRANULOCYTES 3.3 % (0-5); LYMPHOCYTES 15.8 % (15-50); MCH 30.5 pg (26.0-34.0); MCHC 31.7 g/dL (31.0-37.0); MCV 96.1 fL (80.0-100.0); MEAN PLATELET VOLUME 10.5 fL (7.4-10.4); NEUTROPHILS 71.4 % (40-80); PLATELET COUNT 277 10x3/uL (130-400); RBC 3.05 10x6/uL (4.20-6.10); WBC 12.1 10x3/uL (4.8-10.8)
[2019-10-23 06:07] LABS: ALBUMIN 1.6 g/dL (3.4-5.0); ALKALINE PHOSPHATASE 62 U/L (46-116); ALT (SGPT) 60 U/L (10-68); BILIRUBIN - TOTAL 2.38 mg/dL (0.2-1.3); CALC OSMOLALITY 270 mosm/kg (275-300); CALCIUM 7.6 mg/dL (8.5-10.1); CARBON DIOXIDE 25.1 mmol/L (21.0-32.0); CHLORIDE - SERUM 106 mmol/L (98-107); CREATININE - SERUM 0.6 mg/dL (0.6-1.3); GLUCOSE 115 mg/dL (74-106); POTASSIUM - SERUM 3.6 mmol/L (3.5-5.1); PROTEIN - SERUM 5.1 g/dL (6.4-8.2); SODIUM 136 mmol/L (136-145); UREA NITROGEN 7 mg/dL (7-18); eGFR NON AFRICAN AMERICAN > 90 mL/min (90-120)
[2019-10-23 08:00] VITALS: BP 117/60
--- NOTE | 2019-10-23 08:28 | NUR ---
ASSISTED PT TO BATHROOM TO VOID. MEAL TRAY SET UP AT CHAIR. STEADY GAIT. PT BACK TO BED AFTER HE ATE BREAKFAST. STOOL EMPTIED AND PT TEACHING RE: COLOSTOMY BAG EMPTING DONE. ABD DSNG WITH BROWN DRAINAGE. WOUND PACKED WITH FRESH DSNG. ENCOURAGED PT TO BE OOB TODAY.
--- NOTE | 2019-10-23 10:48 | NUR ---
BATH AND PO PAIN MEDS GIVEN. REPORT CALLED TO MED SURG AND PT TRANSFERED TO 2207.
--- NOTE | 2019-10-23 10:56 | NUR ---
ARRIVES TO UNIT PER W/C, NO DISTRESS NOTED, DRESSING TO LOWER ABD DRY AND INTACT, MARION VISIBLE AT UPPER SECTION, CONT TO MONITOR
--- NOTE | 2019-10-23 10:58 | NUR ---
IV TO LFA, BRUSING NOTED TO LEFT SIDE AND HIP, PURPLE IN COLOR
[2019-10-23 13:49] VITALS: BP 109/58
--- NOTE | 2019-10-23 15:51 | NUR ---
1400 REPLACED PT COLOSTOMY BAG AND BARRIER, DID TEACHING ON CUTTING OF BARRIER, FITTING OF BAG AND HOW TO EMPTY BAG, NEED TO CONT. TEACHING
[2019-10-23 16:54] VITALS: BP 129/69
[2019-10-23 19:30] VITALS: BP 110/57
--- NOTE | 2019-10-23 19:47 | NUR ---
UP WALKING IN HALLS TODAY, REN WELL, CONT TO MONITOR
--- NOTE | 2019-10-23 22:44 | NUR ---
PT C/O PAIN 07/02. GAVE MORPHINE 2 MG IV PUSH. BURPED COLOSTOMY BAG AND EMPTIED 25 MLS BROWN LIQUID STOOL. NO OTHER NEEDS. WILL REASSESS AND CONTINUE TO MONITOR.
--- NOTE | 2019-10-24 02:49 | NUR ---
PT C/O BURNING PAIN 07/02 TO THE RIGHT OF INCISION. GAVE NORCO-5 PO. EMPTIED COLOSTOMY 400 MLS AND GAVE TEACHING ON CARING FOR COLOSTOMY. NO OTHER NEEDS. WILL REASSESS AND CONTINUE TO MONITOR.
[2019-10-24 05:00] VITALS: BP 118/60
[2019-10-24 06:08] LABS: BASOPHILS 0.2 % (0-2); EOSINOPHILS 1.8 % (0-7); HEMATOCRIT 31.9 % (42.0-54.0); HEMOGLOBIN 9.8 g/dL (13.5-17.5); IMMATURE GRANULOCYTES 2.1 % (0-5); LYMPHOCYTES 17.6 % (15-50); MCH 29.9 pg (26.0-34.0); MCHC 30.7 g/dL (31.0-37.0); MCV 97.3 fL (80.0-100.0); MEAN PLATELET VOLUME 11.1 fL (7.4-10.4); MONOCYTES 6.9 % (2-11); NEUTROPHILS 71.4 % (40-80); PLATELET COUNT 289 10x3/uL (130-400); RBC 3.28 10x6/uL (4.20-6.10); RDW 15.9 % (11.5-14.5); WBC 9.9 10x3/uL (4.8-10.8)
[2019-10-24 06:24] LABS: ALBUMIN 1.8 g/dL (3.4-5.0); ALKALINE PHOSPHATASE 71 U/L (46-116); ALT (SGPT) 69 U/L (10-68); BILIRUBIN - TOTAL 2.27 mg/dL (0.2-1.3); CALC OSMOLALITY 273 mosm/kg (275-300); CARBON DIOXIDE 25.6 mmol/L (21.0-32.0); CHLORIDE - SERUM 106 mmol/L (98-107); CREATININE - SERUM 0.7 mg/dL (0.6-1.3); GLUCOSE 119 mg/dL (74-106); POTASSIUM - SERUM 3.7 mmol/L (3.5-5.1); PROTEIN - SERUM 5.7 g/dL (6.4-8.2); SODIUM 138 mmol/L (136-145); eGFR NON AFRICAN AMERICAN > 90 mL/min (90-120)
[2019-10-24 06:25] LABS: UREA NITROGEN 5 mg/dL (7-18)
[2019-10-24] MEDS ORDERED: TRAZODONE HCL150 MG PO (08:13)
[2019-10-24] MEDS ORDERED: CELEXA10 MG PO (08:13)
[2019-10-24] MEDS ORDERED: MELATONIN 3 MG1 TAB PO (08:14)
[2019-10-24 08:45] VITALS: BP 106/66
--- NOTE | 2019-10-24 08:57 | NUR ---
ALERT AND ORIENTED. LUNGS CLEAR BILATERALLY. HEART SOUNDS S1 AND S2 HEARD IN ALL MICHAUD. BOWEL SOUNDS ACTIVE X 4. LEFT SIDE OSTOMY PATENT. BURPED AND EMPTIED. 25 ML OUTPUT NOTED. ASKED PATIENT IF HAS BEEN TAUGHT TO EMPY OSTOMY. STATES "YES BUT I'M NOT VERY GOOD AT IT." EDUCATION PROVIDED AND PATIENT AGREES TO PRACTICE EMPTYING BAG TODAY. BRUISING NOTED TO LEFT SIDE AND BACK. DENIES NEEDS. BED LOW. CALL MORAES AND PERSONAL ITEMS IN REACH. WILL CONTINUE TO MONITOR.
--- NOTE | 2019-10-24 11:49 | NUR ---
RESTING IN BED. DENIES NEEDS. WILL CONTINUE TO MONITOR.
[2019-10-24 13:23] VITALS: BP 134/77
--- NOTE | 2019-10-24 15:00 | MORECARE ---
CASE MANAGEMENT DISCHARGE SUMMARY PATIENT: RUTH SANTIAGO UNIT: [id number] ADM DATE: 10/07/19 AGE: 59 : 64 SEX: M ROOM/BED: D.2208 AUTHOR: AARON,DOC PHYSICIAN: REFERRING PHYSICIAN: IRAJ RUSS MD DATE OF SERVICE: 10/24/19 Discharge Plan Patient Name: RUTH SANTIAGO Facility: [facility]:[place] : 1960 Planned Disposition: Home or Self Care Anticipated Discharge Date: Discharge Date: Expected LOS: Initial Reviewer: [id number] Initial Review Date: 10/07/2019 Generated: 10/24/19 3:59 pm DCP- Discharge Planning Updated by [id number]: Yoana Dumont on 10/20/19 2:[address] late entry 10/19/19 CM spoke with patients sister Radha Chaudhry [phone] regarding discharge planning. CM explained that patient would not be able to return home alone at this point. Radha stated that she understood and that he would need to be placed in a long lines operator care facility. Patient is confused and unable to make decisions at this time. Radha stated that she had no preference of facility other than she would like it to be local. NAYAN signed. CM will continue to follow and assist as needed with discharge planning needs. DCP- Discharge Planning Updated by [email or web address]: Bettye Gee on 10/12/19 10:[address] Patient Name: RUTH SANTIAGO Admission Status: ER Accout number: [id number] Admission Date: 10-07-2019 : 1960 Admission Diagnosis: Attending: IRAJ RUSS Current LOS: 5 Anticipated DC Date: Planned Disposition: Home or Self Care Primary Insurance: MEDICAID [place] Discharge Planning Comments: CM met with patient to complete initial dc planning assessment. CM educated patient on the CM role and verbal consent given by patient to complete assessment. Patient lives at home where he is independent with his care. At discharge patient plans to return home and feels this is a safe discharge. He said his friend Les would be his cdl driver home. CM discussed availability of home health, rehab services, and medical equipment. I am unsure of potential needs till his surgery is done. Patient denied known discharge needs at this time. CM will continue to follow and will assist as needed with dc plans/needs. Dietetics Director: Bettye Gee DCPIA - Discharge Planning Initial Assessment Updated by [email or web address]: Bettye Gee on 10/12/19 11:50 am * Is the patient Alert and Oriented? Yes * How many steps to enter\exit or inside your home? 06/30 * PCP JEB * Pharmacy [facility] [address] * Preadmission Environment Home Alone * ADLs Independent * Equipment None * List name and contact numbers for known caregivers / representatives who currently or will assist patient after discharge: RADHA CHAUDHRY (SISTER) [phone] * Verbal permission to speak to the caregivers and representatives has been obtained from the patient. N/A * Community resources currently utilized None * Additional services required to return to the preadmission environment? No * Can the patient safely return to the preadmission environment? Yes * Has this patient been hospitalized within the prior 30 days at any hospital? No Coverage Notice Reviewer: [id number] Misty Dumont Notice Issued Date-Time: 10/19/2019 11:20 Notice Type: Patient Choice Letter Notice Delivered To: Family Member Relationship to Patient: Sister Fur Liner Name: JOSUÉ CHAUDHRY Delivery Method: PHONE - Phone Sisi Days: Prior Verbal Notification: Recipient Understood Notice: Yes Recipient Signature: Yes Med Rec Note Co-signed by Attending: Coverage Notice Comment: Last DP export: 10/20/19 2:36 Patient Name: RUTH SANTIAGO Page [id number] at 1500 All edits/amendments must be made on the electronic document DICTATION DATE: 10/24/191458 ROUND BONER: SEBASTIAN 10/24/19 145 RPT#: [id number] DC DATE: STATUS: ADM IN [facility] [address] [place] [address] END OF REPORT
--- NOTE | 2019-10-24 15:08 | MORECARE ---
CASE MANAGEMENT DISCHARGE SUMMARY PATIENT: RUTH SANTIAGO UNIT: [id number] ADM DATE: 10/07/19 AGE: 59 : 64 SEX: M ROOM/BED: D.2208 AUTHOR: RUT WALKER PHYSICIAN: REFERRING PHYSICIAN: IRAJ RUSS MD DATE OF SERVICE: 10/24/19 Discharge Plan Patient Name: RUTH SANTIAGO Facility: [facility]:[place] : 1960 Planned Disposition: Home or Self Care Anticipated Discharge Date: Discharge Date: Expected LOS: Initial Reviewer: [id number] Initial Review Date: 10/07/2019 Generated: 10/24/19 4:07 pm Comments DCP- Discharge Planning Updated by [email or web address]: Bettye Gee on 10/24/19 2:[address] CM MET WITH PATIENT ABOUT DC PLANNING AND HOME HEALTH. PATIENT WOULD LIKE HOME HEALTH SET UP, NAYAN SIGNED AND PLACED IN CHART. CARE IV IS PATIENTS FIRST CHOICE. I WILL CALL AND SET UP . CM TO FOLLOW AND ASSIST NEEDED PATIENTS HOME ADDRESS IN [address] [place] [address] DCP- Discharge Planning Updated by [id number]: Yoana Dumont on 10/20/19 2:[address] late entry 10/19/19 CM spoke with patients sister Radha Chaudhry [phone] regarding discharge planning. CM explained that patient would not be able to return home alone at this point. Radha stated that she understood and that he would need to be placed in a shelter care facility. Patient is confused and unable to make decisions at this time. Radha stated that she had no preference of facility other than she would like it to be local. NAYAN signed. CM will continue to follow and assist as needed with discharge planning needs. DCP- Discharge Planning Updated by [id number]: Bettye Gee on 10/12/19 10:[address] Patient Name: RUTH SANTIAGO Admission Status: ER Accout number: [id number] Admission Date: 10-07-2019 : 1960 Admission Diagnosis: Attending: IRAJ RUSS Current LOS: 5 Anticipated DC Date: Planned Disposition: Home or Self Care Primary Insurance: MEDICAID [place] Discharge Planning Comments: CM met with patient to complete initial dc planning assessment. CM educated patient on the CM role and verbal consent given by patient to complete assessment. Patient lives at home where he is independent with his care. At discharge patient plans to return home and feels this is a safe discharge. 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 CM discussed availability of home health, rehab services, and medical equipment. I am unsure of potential needs till his surgery is done. Patient denied known discharge needs at this time. CM will continue to follow and will assist as needed with dc plans/needs. Nutrition Director: Bettye Gee DCPIA - Discharge Planning Initial Assessment Updated by [id number]: Bettye Gee on 10/12/19 11:50 am * Is the patient Alert and Oriented? Yes * How many steps to enter\exit or inside your home? 06/30 * PCP JEB * Pharmacy [facility] [address] * Preadmission Environment Home Alone * ADLs Independent * Equipment None * List name and contact numbers for known caregivers / representatives who currently or will assist patient after discharge: RADHA CHAUDHRY (SISTER) [phone] * Verbal permission to speak to the caregivers and representatives has been obtained from the patient. N/A * Community resources currently utilized None * Additional services required to return to the preadmission environment? No * Can the patient safely return to the preadmission environment? Yes * Has this patient been hospitalized within the prior 30 days at any hospital? No Coverage Notice Reviewer: [email or web address] - Yoana Dumont Notice Issued Date-Time: 10/19/2019 11:20 Notice Type: Patient Choice Letter Notice Delivered To: Family Member Relationship to Patient: Sister Instruction Assistant Principal Name: JOSUÉ CHAUDHRY Delivery Method: PHONE - Phone Sisi Days: Prior Verbal Notification: Recipient Understood Notice: Yes Recipient Signature: Yes Med Rec Note Co-signed by Attending: Coverage Notice Comment: Last DP export: 10/24/19 2:00 p Patient Name: RUTH SANTIAGO Page [phone] at 1508 All edits/amendments must be made on the electronic document DICTATION DATE: 10/24/19 1506 EARTH SCIENCE TECHNICAL OFFICER: SEBASTIAN 10/24/19 1502 RPT#: [id number] DC DATE: STATUS: ADM IN [facility] [address] [place] [address] END OF REPORT
--- NOTE | 2019-10-24 15:20 | MORECARE ---
CASE MANAGEMENT DISCHARGE SUMMARY PATIENT: RUTH SANTIAGO UNIT: [id number] ADM DATE: 10/07/19 AGE: 59 : 64 SEX: M ROOM/BED: D.2208 AUTHOR: RUT WALKER PHYSICIAN: REFERRING PHYSICIAN: IRAJ RUSS MD DATE OF SERVICE: 10/24/19 Discharge Plan Patient Name: RUTH SANTIAGO Facility: [facility]:[place] : 1960 Planned Disposition: Home or Self Care Anticipated Discharge Date: Discharge Date: Expected LOS: Initial Reviewer: [email or web address] Initial Review Date: 10/07/2019 Generated: 10/24/19 4:20 pm Comments DCP- Discharge Planning Updated by [email or web address]: Bettye Gee on 10/24/19 2:[address] CM MET WITH PATIENT ABOUT DC PLANNING AND HOME HEALTH. PATIENT WOULD LIKE HOME HEALTH SET UP, NAYAN SIGNED AND PLACED IN CHART. CARE IV IS PATIENTS FIRST CHOICE. I WILL CALL AND SET UP . CM TO FOLLOW AND ASSIST NEEDED PATIENTS HOME ADDRESS IN [address] [place] [address] DCP- Discharge Planning Updated by [id number]: Yoana Dumont on 10/20/19 2:[address] late entry 10/19/19 CM spoke with patients sister Radha Chaudhry [phone] regarding discharge planning. CM explained that patient would not be able to return home alone at this point. Radha stated that she understood and that he would need to be placed in a group home care facility. Patient is confused and unable to make decisions at this time. Radha stated that she had no preference of facility other than she would like it to be local. NAYAN signed. CM will continue to follow and assist as needed with discharge planning needs. DCP- Discharge Planning Updated by [id number]: Bettye Gee on 10/12/19 10:[address] Patient Name: RUTH SANTIAGO Admission Status: ER Accout number: [id number] Admission Date: 10-07-2019 : 1960 Admission Diagnosis: Attending: IRAJ RUSS Current LOS: 5 Anticipated DC Date: Planned Disposition: Home or Self Care Primary Insurance: MEDICAID [place] Discharge Planning Comments: CM met with patient to complete initial dc planning assessment. CM educated patient on the CM role and verbal consent given by patient to complete assessment. Patient lives at home where he is independent with his care. At discharge patient plans to return home and feels this is a safe discharge. He said his friend Les would be his haul driver home. CM discussed availability of home health, rehab services, and medical equipment. I am unsure of potential needs till his surgery is done. Patient denied known discharge needs at this time. CM will continue to follow and will assist as needed with dc plans/needs. Store Facility Technician: Bettye Gee DCPIA - Discharge Planning Initial Assessment Updated by [email or web address]: Bettye Gee on 10/12/19 11:50 am * Is the patient Alert and Oriented? Yes * How many steps to enter\exit or inside your home? 06/30 * PCP JEB * Pharmacy [facility] [address] * Preadmission Environment Home Alone * ADLs Independent * Equipment None * List name and contact numbers for known caregivers / representatives who currently or will assist patient after discharge: RADHA CHAUDHRY (SISTER) [phone] * Verbal permission to speak to the caregivers and representatives has been obtained from the patient. N/A * Community resources currently utilized None * Additional services required to return to the preadmission environment? No * Can the patient safely return to the preadmission environment? Yes * Has this patient been hospitalized within the prior 30 days at any hospital? No External Providers External Provider: [facility] Next Contact Date: Service Request Date: Service Type: Resolution: Reviewer: Comments: Coverage Notice Reviewer: [id number] - Yoana Dumont Notice Issued Date-Time: 10/19/2019 11:20 Notice Type: Patient Choice Letter Notice Delivered To: Family Member Relationship to Patient: Sister Auto Winder Name: JOSUÉ CHAUDHRY Delivery Method: PHONE - Phone Sisi Days: Prior Verbal Notification: Recipient Understood Notice: Yes Recipient Signature: Yes Med Rec Note Co-signed by Attending: Coverage Notice Comment: Reviewer: [id number] - Bettye Gee Notice Issued Date-Time: 10/24/2019 14:50 Notice Type: Patient Choice Letter Notice Delivered To: Patient Relationship to Patient: Auto Winder Name: Delivery Method: HAND - Hand Delivered Sisi Days: Prior Verbal Notification: Recipient Understood Notice: Yes Recipient Signature: Yes Med Rec Note Co-signed by Attending: Coverage Notice Comment: Last DP export: 10/24/19 2:08 p Patient Name: RUTH SANTIAGO Page 75579 at 1520 All edits/amendments must be made on the electronic document DICTATION DATE: 10/24/19 152 TICK INSPECTOR: SEBASTIAN 10/24/19 1520 RPT#: [id number] DC DATE: STATUS: ADM IN [facility] [address] [place] [address] END OF REPORT
[2019-10-24 16:46] VITALS: BP 114/74
[2019-10-24 19:30] VITALS: BP 131/75
[2019-10-25 01:34] VITALS: BP 101/56
[2019-10-25 06:01] VITALS: BP 127/55
[2019-10-25 06:32] LABS: BASOPHILS 0.2 % (0-2); EOSINOPHILS 1.6 % (0-7); HEMATOCRIT 31.9 % (42.0-54.0); HEMOGLOBIN 9.8 g/dL (13.5-17.5); IMMATURE GRANULOCYTES 1.3 % (0-5); LYMPHOCYTES 23.7 % (15-50); MCH 30.1 pg (26.0-34.0); MCHC 30.7 g/dL (31.0-37.0); MCV 97.9 fL (80.0-100.0); MEAN PLATELET VOLUME 10.9 fL (7.4-10.4); MONOCYTES 7.8 % (2-11); NEUTROPHILS 65.4 % (40-80); RBC 3.26 10x6/uL (4.20-6.10); RDW 15.7 % (11.5-14.5); WBC 8.5 10x3/uL (4.8-10.8)
[2019-10-25 06:33] LABS: PLATELET COUNT 404 10x3/uL (130-400)
[2019-10-25 06:34] LABS: ALKALINE PHOSPHATASE 69 U/L (46-116); ALT (SGPT) 68 U/L (10-68); BILIRUBIN - TOTAL 2.31 mg/dL (0.2-1.3); CALC OSMOLALITY 277 mosm/kg (275-300); CALCIUM 7.8 mg/dL (8.5-10.1); CARBON DIOXIDE 28.6 mmol/L (21.0-32.0); CHLORIDE - SERUM 104 mmol/L (98-107); CREATININE - SERUM 0.7 mg/dL (0.6-1.3); GLUCOSE 106 mg/dL (74-106); POTASSIUM - SERUM 3.9 mmol/L (3.5-5.1); PROTEIN - SERUM 5.7 g/dL (6.4-8.2); SODIUM 141 mmol/L (136-145); UREA NITROGEN 3 mg/dL (7-18); eGFR NON AFRICAN AMERICAN > 90 mL/min (90-120)
[2019-10-25 08:31] VITALS: BP 110/62
--- NOTE | 2019-10-25 09:10 | NUR ---
Ostomy left abdomen. Stoma is red and shiny and measures 1-3/4". Surrounding skin is normal. Discussed with patient care of stoma/surrounding skin. Pt has been practicing emptying the bag but continues to need assistance with application of wafer. Wound care continues to monitor.
[2019-10-25] MEDS ORDERED: FLOMAX0.4 MG PO (13:19)
[2019-10-25] MEDS ORDERED: ALDACTONE25 MG PO (13:22)
[2019-10-25] MEDS ORDERED: HYDROCODON-ACE1 EAC7 PO (13:24)
[2019-10-25] MEDS ORDERED: CHRONULAC30 ML PO (13:24)
[2019-10-25] MEDS ORDERED: THERAGRAN M [BK1 TAB PO (13:25)
[2019-10-25 13:36] VITALS: BP 118/58
--- NOTE | 2019-10-25 14:28 | MORECARE ---
CASE MANAGEMENT DISCHARGE SUMMARY PATIENT: RUTH SANTIAGO UNIT: [id number] ADM DATE: 10/07/19 AGE: 59 : 64 SEX: M ROOM/BED: D.2208 AUTHOR: AARONDOC PHYSICIAN: REFERRING PHYSICIAN: IRAJ RUSS MD DATE OF SERVICE: 10/25/19 Discharge Plan Patient Name: RUTH SANTIAGO Facility: [facility]:[place] : 1960 Planned Disposition: Home or Self Care Anticipated Discharge Date: Discharge Date: Expected LOS: Initial Reviewer: [email or web address] Initial Review Date: 10/07/2019 Generated: 10/25/19 3:27 pm Comments DCP- Discharge Planning Updated by [email or web address]: Bettye Gee on 10/25/19 1:[address] PATIENT IS DISCHARGING HOME TODAY WITH [facility]. CM WILL PAY FOR TAXI TO TAKE HIM TO [facility] ON TO HIS HOME. I CALLED THE [employer] AND IT WILL COST 12.25. APPROVED BY Kamilah WHITESIDE RN DCP- Discharge Planning Updated by [email or web address]: Bettye Gee on 10/24/19 2:[address] CM MET WITH PATIENT ABOUT DC PLANNING AND HOME HEALTH. PATIENT WOULD LIKE HOME HEALTH SET UP, NAYAN SIGNED AND PLACED IN CHART. [facility] IS PATIENTS FIRST CHOICE. I WILL CALL AND SET UP . CM TO FOLLOW AND ASSIST NEEDED PATIENTS HOME ADDRESS IN [address] [place] [address] DCP- Discharge Planning Updated by [email or web address]: Yoana Dumont on 10/20/19 2:[address] late entry 10/19/19 CM spoke with patients sister Radha Chaudhry [phone] regarding discharge planning. CM explained that patient would not be able to return home alone at this point. Radha stated that she understood and that he would need to be placed in a watcher automat long goods care facility. Patient is confused and unable to make decisions at this time. Radha stated that she had no preference of facility other than she would like it to be local. NAYAN signed. CM will continue to follow and assist as needed with discharge planning needs. DCP- Discharge Planning Updated by [id number]: Bettye Gee on 10/12/19 10:[address] Patient Name: RUTH SANTIAGO Admission Status: ER Accout number: [id number] Admission Date: 10-07-2019 : 1960 Admission Diagnosis: Attending: IRAJ RUSS Current LOS: 5 Anticipated DC Date: Planned Disposition: Home or Self Care Primary Insurance: MEDICAID [place] Discharge Planning Comments: CM met with patient to complete initial dc planning assessment. CM educated patient on the CM role and verbal consent given by patient to complete assessment. Patient lives at home where he is independent with his care. At discharge patient plans to return home and feels this is a safe discharge. He said his friend Les would be his local company truck driver home. CM discussed availability of home health, rehab services, and medical equipment. I am unsure of potential needs till his surgery is done. Patient denied known discharge needs at this time. CM will continue to follow and will assist as needed with dc plans/needs. Dye Tub Tender: Bettye Gee DCPIA - Discharge Planning Initial Assessment Updated by [id number]: Bettye Gee on 10/12/19 11:50 am * Is the patient Alert and Oriented? Yes * How many steps to enter\exit or inside your home? 06/30 * PCP JEB * Pharmacy [facility] [address] * Preadmission Environment Home Alone * ADLs Independent * Equipment None * List name and contact numbers for known caregivers / representatives who currently or will assist patient after discharge: RADHA CHAUDHRY (SISTER) [phone] * Verbal permission to speak to the caregivers and representatives has been obtained from the patient. N/A * Community resources currently utilized None * Additional services required to return to the preadmission environment? No * Can the patient safely return to the preadmission environment? Yes * Has this patient been hospitalized within the prior 30 days at any hospital? No Coverage Notice Reviewer: [email or web address] Misty Dumont Notice Issued Date-Time: 10/19/2019 11:20 Notice Type: Patient Choice Letter Notice Delivered To: Family Member Relationship to Patient: Sister Head Cager Name: JOSUÉ CHAUDHRY Delivery Method: PHONE - Phone Sisi Days: Prior Verbal Notification: Recipient Understood Notice: Yes Recipient Signature: Yes Med Rec Note Co-signed by Attending: Coverage Notice Comment: Reviewer: [id number] - Bettye Gee Notice Issued Date-Time: 10/24/2019 14:50 Notice Type: Patient Choice Letter Notice Delivered To: Patient Relationship to Patient: Head Cager Name: Delivery Method: HAND - Hand Delivered Sisi Days: Prior Verbal Notification: Recipient Understood Notice: Yes Recipient Signature: Yes Med Rec Note Co-signed by Attending: Coverage Notice Comment: Last DP export: 10/24/19 2:20 p Patient Name: RUTH SANTIAGO Page 03417 at 1428 All edits/amendments must be made on the electronic document DICTATION DATE: 10/25/191427 LACQUER SIZER: SEBASTIAN 10/25/19 1428 RPT#: [id number] DC DATE: STATUS: ADM IN [facility] [address] [place] [address] END OF REPORT
--- NOTE | 2019-10-25 16:27 | NUR ---
DISCHARGE INSTRUCTIONS GIVEN. SEEMS TO UNDERSTAND INSTRUCTION. IV OUT TIP INTACT. GAVE PT SUPPLIES TO [facility] TO ARRIVE TO SEE PT. LEFT WITH HOSPTIAL STAFF TO GO HOME.
--- NOTE | 2019-10-31 13:50 | MORECARE ---
CASE MANAGEMENT DISCHARGE SUMMARY PATIENT: RUTH SNATIAGO UNIT: [id number] ADM DATE: 10/07/19 AGE: 59 : 64 SEX: M ROOM/BED: D.2208 AUTHOR: AARON,DOC PHYSICIAN: REFERRING PHYSICIAN: IRAJ RUSS MD DATE OF SERVICE: 10/31/19 Discharge Plan Patient Name: RUTH SANTIAGO Facility: [facility]:[place] : 1960 Planned Disposition: Home or Self Care Anticipated Discharge Date: Discharge Date: 10/25/2019 Expected LOS: Initial Reviewer: [email or web address] Initial Review Date: 10/07/2019 Generated: 10/31/19 2:50 pm Comments DCP- Discharge Planning Updated by [id number]: Bettye Gee on 10/25/19 1:[address] PATIENT IS DISCHARGING HOME TODAY WITH [facility]. CM WILL PAY FOR TAXI TO TAKE HIM TO [facility] ON TO HIS HOME. I CALLED THE [employer] AND IT WILL COST 12.25. APPROVED BY Kamilah WHITESIDE RN DCP- Discharge Planning Updated by [email or web address]: Bettye Gee on 10/24/19 2:[address] CM MET WITH PATIENT ABOUT DC PLANNING AND HOME HEALTH. PATIENT WOULD LIKE HOME HEALTH SET UP, NAYAN SIGNED AND PLACED IN CHART. [facility] IS PATIENTS FIRST CHOICE. I WILL CALL AND SET UP . CM TO FOLLOW AND ASSIST NEEDED PATIENTS HOME ADDRESS IN [address] [place] [id number] DCP- Discharge Planning Updated by [email or web address]: Yoana Dumont on 10/20/19 2:[address] late entry 10/19/19 CM spoke with patients sister Radha Chaudhry [phone] regarding discharge planning. CM explained that patient would not be able to return home alone at this point. Radha stated that she understood and that he would need to be placed in a detention care facility. Patient is confused and unable to make decisions at this time. Radha stated that she had no preference of facility other than she would like it to be local. NAYAN signed. CM will continue to follow and assist as needed with discharge planning needs. DCP- Discharge Planning Updated by [email or web address]: Bettye Gee on 10/12/19 10:[address] Patient Name: RUTH SANTIAGO Admission Status: ER Accout number: [id number] Admission Date: 10-07-2019 : 1960 Admission Diagnosis: Attending: IRAJ RUSS Current LOS: 5 Anticipated DC Date: Planned Disposition: Home or Self Care Primary Insurance: MEDICAID [place] Discharge Planning Comments: CM met with patient to complete initial dc planning assessment. CM educated patient on the CM role and verbal consent given by patient to complete assessment. Patient lives at home where he is independent with his care. At discharge patient plans to return home and feels this is a safe discharge. He said his friend Les would be his parts delivery driver home. CM discussed availability of home health, rehab services, and medical equipment. I am unsure of potential needs till his surgery is done. Patient denied known discharge needs at this time. CM will continue to follow and will assist as needed with dc plans/needs. Senior C Web Developer: Bettye Gee DCPIA - Discharge Planning Initial Assessment Updated by [id number]: Bettye Gee on 10/12/19 11:50 am * Is the patient Alert and Oriented? Yes * How many steps to enter\exit or inside your home? 06/30 * PCP JEB * Pharmacy [facility] ON [place] * Preadmission Environment Home Alone * ADLs Independent * Equipment None * List name and contact numbers for known caregivers / representatives who currently or will assist patient after discharge: RADHA CHAUDHRY (SISTER) [phone] * Verbal permission to speak to the caregivers and representatives has been obtained from the patient. N/A * Community resources currently utilized None * Additional services required to return to the preadmission environment? No * Can the patient safely return to the preadmission environment? Yes * Has this patient been hospitalized within the prior 30 days at any hospital? No Coverage Notice Reviewer: [id number] Misty Dumont Notice Issued Date-Time: 10/19/2019 11:20 Notice Type: Patient Choice Letter Notice Delivered To: Family Member Relationship to Patient: Sister Coordinator Of Placement Name: JOSUÉ CHAUDHRY Delivery Method: PHONE - Phone Sisi Days: Prior Verbal Notification: Recipient Understood Notice: Yes Recipient Signature: Yes Med Rec Note Co-signed by Attending: Coverage Notice Comment: Reviewer: [email or web address] Misty Gee Notice Issued Date-Time: 10/24/2019 14:50 Notice Type: Patient Choice Letter Notice Delivered To: Patient Relationship to Patient: Coordinator Of Placement Name: Delivery Method: HAND - Hand Delivered Sisi Days: Prior Verbal Notification: Recipient Understood Notice: Yes Recipient Signature: Yes Med Rec Note Co-signed by Attending: Coverage Notice Comment: Last DP export: 10/25/19 1:28 p Patient Name: RUTH SANTIAGO Page [phone] at 1350 All edits/amendments must be made on the electronic document DICTATION DATE: 10/31/19 1350 LEARNING AND DEVELOPMENT ASSOCIATE: SEBASTIAN 10/31/19 1350 RPT#: [id number] DC DATE:10/25/19 STATUS: DIS IN [facility] [address] [place] [address] END OF REPORT
== END 2019-10-25 16:28 | disposition home health service (06) | DRG 653 ==
LOC: D.ER 11:19 → D.MS 16:10 → D.ICU 16:10 → D.MS 10-08 17:58 → D.ICU 10-13 12:33 → D.CVICU 10-21 15:48 → D.MS 10-23 10:50
PROVIDERS: Family Medicine; Internal Medicine Pulmonary Disease; Surgery; ADMIT Family Medicine; ATTEND Family Medicine
PROC: 0DB80ZZ Excision of Small Intestine, Open Approach (ICD-10-PCS; 2019-10-12)
PROC: 0DTJ0ZZ Resection of Appendix, Open Approach (ICD-10-PCS; 2019-10-12)
PROC: 0DTN0ZZ Resection of Sigmoid Colon, Open Approach (ICD-10-PCS; principal; 2019-10-12 08:30)
PROC: 0TQB0ZZ Repair Bladder, Open Approach (ICD-10-PCS; 2019-10-12 08:30)
PROC: 0D1E0Z4 Bypass Large Intestine to Cutaneous, Open Approach (ICD-10-PCS; 2019-10-12 08:30)
PROC: 0W9F0ZZ Drainage of Abdominal Wall, Open Approach (ICD-10-PCS; 2019-10-14)
PROC: 0WQF3ZZ Repair Abdominal Wall, Percutaneous Approach (ICD-10-PCS; 2019-10-16)
DX: N32.1 Vesicointestinal fistula (principal); G92 Toxic encephalopathy; A41.9 Sepsis, unspecified organism; K65.9 Peritonitis, unspecified; N39.0 Urinary tract infection, site not specified; K57.32 Diverticulitis of large intestine without perforation or abscess without bleeding; S22.31XA Fracture of one rib, right side, initial encounter for closed fracture; F10.239 Alcohol dependence with withdrawal, unspecified; B96.20 Unspecified Escherichia coli [E. coli] as the cause of diseases classified elsewhere; F10.229 Alcohol dependence with intoxication, unspecified

== ENCOUNTER 2019-10-27 12:49 | Inpatient (IN) | payer MEDICAID ==
[~2019-10-27] VITALS: Ht 162.6 cm; Wt 73.5 kg
[~2019-10-27 12:49] MED LIST: ALDACTONE25 MG PO; CELEXA10 MG PO; CHRONULAC30 ML PO; FLOMAX0.4 MG PO; HYDROCODON-ACE1 EAC7 PO; MELATONIN 3 MG1 TAB PO; THERAGRAN M [BK1 TAB PO; TRAZODONE HCL150 MG PO
[2019-10-27 13:30] LABS: BASOPHILS 0.3 % (0-2); EOSINOPHILS 0.4 % (0-7); HEMATOCRIT 36.3 % (42.0-54.0); HEMOGLOBIN 11.5 g/dL (13.5-17.5); IMMATURE GRANULOCYTES 0.5 % (0-5); LYMPHOCYTES 14.2 % (15-50); MCH 30.3 pg (26.0-34.0); MCHC 31.7 g/dL (31.0-37.0); MCV 95.5 fL (80.0-100.0); MEAN PLATELET VOLUME 9.9 fL (7.4-10.4); MONOCYTES 9.7 % (2-11); NEUTROPHILS 74.9 % (40-80)
[2019-10-27 13:31] LABS: PLATELET COUNT 563 10x3/uL (130-400)
[2019-10-27 13:35] LABS: CALC OSMOLALITY 277 mosm/kg (275-300); CALCIUM 8.5 mg/dL (8.5-10.1); CHLORIDE - SERUM 102 mmol/L (98-107); GLUCOSE 145 mg/dL (74-106); POTASSIUM - SERUM 3.8 mmol/L (3.5-5.1); SODIUM 137 mmol/L (136-145); UREA NITROGEN 14 mg/dL (7-18); eGFR NON AFRICAN AMERICAN 82 mL/min (90-120)
[2019-10-27 13:40] LABS: ALBUMIN 2.8 g/dL (3.4-5.0); ALKALINE PHOSPHATASE 81 U/L (46-116); ALT (SGPT) 82 U/L (10-68); AMYLASE - SERUM 149 U/L (25-115); BILIRUBIN - TOTAL 2.27 mg/dL (0.2-1.3); LIPASE 841 U/L (73-393); PROTEIN - SERUM 7.4 g/dL (6.4-8.2); TROPONIN-I < 0.017 ng/mL (0.000-0.060)
--- NOTE | 2019-10-27 15:15 | NUR ---
PT GONE TO CT, TRANSPORTED VIA STRETCHER
--- NOTE | 2019-10-27 15:43 | NUR ---
URINE SENT TO LAB AT THIS TIME. PT LYING IN BED, RESPIRATIONS EVEN AND UNLABORED. NO SIGNS OF DISTRESS. CALL LIGHT IN REACH, WILL CONTINUE TO MONITOR.
[2019-10-27 16:07] LABS: APPEARANCE CLEAR (CLEAR); BILIRUBIN NEGATIVE (NEGATIVE); COLOR YELLOW (YELLOW); GLUCOSE NEGATIVE (NEGATIVE); KETONE NEGATIVE (NEGATIVE); NITRITE NEGATIVE (NEGATIVE); PROTEIN NEGATIVE (NEGATIVE); SPECIFIC GRAVITY 1.015 (1.005-1.020); UROBILINOGEN NORMAL (NORMAL)
[2019-10-27 18:48] VITALS: BP 114/35
[2019-10-27 20:00] VITALS: BP 98/53
[2019-10-27 22:51] VITALS: BP 98/53; BMI 27.8
--- NOTE | 2019-10-27 23:56 | NUR ---
PT RESTING IN BED. EYES CLOSED. NO SIGNS OF DISTRESS. BREATHING EVEN AND UNLABORED. IV SITE LT HAND DRESSING CLEAN DRY AND INTACT. NO SIGNS OF INFECTION OR INFULTRATION. LUNG SOUNDS CLEAR. BOWEL SOUNDS ACTIVE. ABD INCISION STAPES PRESENT. OPEN WOUND HALF WAY DOWN DRESSING CLEAN DRY AND INTACT. COLOSTOMY LT LOWER ABD CLEAN DRY AND INTACT. NO LOWER LEG SWELLING PRESENT. WILL CONTINUE PLAN OF CARE. CALL LIGHT IN REACH. BED LOWERED AND LOCKED. BED RAILS UP X2.
[2019-10-28] VITALS: BP 92/57
[2019-10-28 04:00] VITALS: BP 90/56
[2019-10-28 07:01] LABS: BASOPHILS 0.6 % (0-2); EOSINOPHILS 1.7 % (0-7); HEMATOCRIT 31.6 % (42.0-54.0); HEMOGLOBIN 9.8 g/dL (13.5-17.5); IMMATURE GRANULOCYTES 0.4 % (0-5); LYMPHOCYTES 22.9 % (15-50); MCH 29.9 pg (26.0-34.0); MCV 96.3 fL (80.0-100.0); MEAN PLATELET VOLUME 10.5 fL (7.4-10.4); NEUTROPHILS 62.4 % (40-80); RBC 3.28 10x6/uL (4.20-6.10); RDW 14.9 % (11.5-14.5); WBC 8.3 10x3/uL (4.8-10.8)
[2019-10-28 07:09] LABS: PLATELET COUNT 420 10x3/uL (130-400)
[2019-10-28 07:18] LABS: ALBUMIN 2.1 g/dL (3.4-5.0); ALKALINE PHOSPHATASE 65 U/L (46-116); ALT (SGPT) 59 U/L (10-68); BILIRUBIN - TOTAL 1.76 mg/dL (0.2-1.3); CALC OSMOLALITY 276 mosm/kg (275-300); CALCIUM 7.8 mg/dL (8.5-10.1); CARBON DIOXIDE 25.4 mmol/L (21.0-32.0); CHLORIDE - SERUM 107 mmol/L (98-107); CREATININE - SERUM 0.6 mg/dL (0.6-1.3); GLUCOSE 87 mg/dL (74-106); POTASSIUM - SERUM 3.5 mmol/L (3.5-5.1); PROTEIN - SERUM 5.9 g/dL (6.4-8.2); SODIUM 140 mmol/L (136-145); UREA NITROGEN 9 mg/dL (7-18); eGFR NON AFRICAN AMERICAN > 90 mL/min (90-120)
--- NOTE | 2019-10-28 07:38 | NUR ---
ALERT AND ORIENTED. LUNGS CLEAR BILATERALLY. HEART SOUNDS S1 AND S2 HEARD IN ALL MICHAUD. BOWEL SOUNDS ACTIVE X 4. LLQ OSTOMY PATENT. MIDLINE INSCISION DRSG C/D/I. IV TO LEFT HAND PATENT WITHOUT REDNESS. BED LOW. CALL MORAES AND PERSONAL ITEMS IN REACH. WILL CONTINUE TO MONITOR.
--- NOTE | 2019-10-28 07:50 | NUR ---
PATIENT STATES THROWING UP. NURSE DID NOT WITNESS ANY VOMIT. PATIENT SCHEDULED FOR CT TODAY BUT REFUSING IV AT THIS TIME. SPOKE WITH ANDREEA WISDOM TO NOTIFY PATIENT REFUSING IV AND GET ZOFRAN CHANGED TO PO PER PATIENT REQUEST.
[2019-10-28 08:12] VITALS: BP 93/56
--- NOTE | 2019-10-28 13:07 | NUR ---
SITTING IN BED EATING LUNCH. DENIES NEEDS. ASKED PATIENT IF WOULD LIKE NICOTINE PATCH. STATES DOES NOT NEED.
[2019-10-28 13:11] VITALS: BP 125/72
[2019-10-28 13:24] VITALS: Ht 162.6 cm; Wt 73.5 kg
[2019-10-28 16:29] VITALS: BP 98/63
--- NOTE | 2019-10-28 16:37 | NUR ---
PATIENT ASKING FOR LACTULOSE. STATES TAKES AT HOME AND NOT HAVING MUCH OUTPUT FROM OSTOMY. NOT ON JAN. DR MONSIVAIS PAGED.
--- NOTE | 2019-10-28 19:00 | NUR ---
BEDSIDE REPORT RECEIVED. PATIENT ASKING DAY SHIFT NURSE ABOUT PAIN MEDICINE. DAY SHIFT RN STATES SHE WILL ADMINISTER MORPHINE TO PATIENT. PATIENT DENIES FURTHER NEEDS. ABDOMINAL MINDLINE INSICISION WITH MARION. REDNESS NOTED TO THE AREA. LLQ COLOSTOMY. DEHISSED INCISION IN ABDOMINAL FOLD. DRESSING REPLACED AND SECURSE. LEFT HAND IV THAT IS PATENT AND INFUSING AT 125 ML PER HOUR. DENIES FURTHER NEEDS AT THIS TIME. CPOC.
[2019-10-28 20:00] VITALS: BP 113/68
--- NOTE | 2019-10-28 23:35 | NUR ---
CHANGED COLOSTOMY. ASSISTED PATIENT WITH GOWN CHANGE. DENIES FURTHER NEEDS AT THIS TIME. CPOC.
[2019-10-29] VITALS: BP 98/62
[2019-10-29 04:00] VITALS: BP 103/59
--- NOTE | 2019-10-29 04:29 | NUR ---
I have reviewed this patient and I concur with the Shift Assessment completed by the Licensed Practical Nurse today this shift.
[2019-10-29 05:04] LABS: BASOPHILS 0.2 % (0-2); HEMATOCRIT 30.2 % (42.0-54.0); HEMOGLOBIN 9.4 g/dL (13.5-17.5); IMMATURE GRANULOCYTES 0.3 % (0-5); LYMPHOCYTES 19.8 % (15-50); MCH 29.8 pg (26.0-34.0); MCHC 31.1 g/dL (31.0-37.0); MCV 95.9 fL (80.0-100.0); MEAN PLATELET VOLUME 9.3 fL (7.4-10.4); MONOCYTES 10.4 % (2-11); NEUTROPHILS 67.3 % (40-80); PLATELET COUNT 375 10x3/uL (130-400); RBC 3.15 10x6/uL (4.20-6.10); RDW 14.4 % (11.5-14.5); WBC 8.8 10x3/uL (4.8-10.8)
[2019-10-29 05:23] LABS: ALKALINE PHOSPHATASE 53 U/L (46-116); ALT (SGPT) 53 U/L (10-68); BILIRUBIN - TOTAL 1.58 mg/dL (0.2-1.3); CALCIUM 7.8 mg/dL (8.5-10.1); CARBON DIOXIDE 25.8 mmol/L (21.0-32.0); CHLORIDE - SERUM 109 mmol/L (98-107); CREATININE - SERUM 0.7 mg/dL (0.6-1.3); GLUCOSE 99 mg/dL (74-106); LIPASE 921 U/L (73-393); PROTEIN - SERUM 5.7 g/dL (6.4-8.2); SODIUM 141 mmol/L (136-145); eGFR NON AFRICAN AMERICAN > 90 mL/min (90-120)
[2019-10-29 05:25] LABS: CALC OSMOLALITY 277 mosm/kg (275-300); POTASSIUM - SERUM 4.1 mmol/L (3.5-5.1); UREA NITROGEN 4 mg/dL (7-18)
--- NOTE | 2019-10-29 08:00 | NUR ---
PT RESTING IN BED. NO SIGNS OF DISTRESS. IV TO LEFT HAND PATENT NO REDNESS OR TENDERNESS. MIDLINE INCISION TO ABDOMEN. COMPLAINS OF PAIN. MEDICAITIONS GIVEN. DENIES ANY FURTHER NEED AT THIS TIME. CALL LIGHT IN REACH BED LOW POSITION. NO FAMILY AT BEDSIDE AT THIS TIME.
[2019-10-29 08:18] VITALS: BP 115/67
--- NOTE | 2019-10-29 10:35 | NUR ---
PT DRESSING ON ABDOMEN HAD SMALL AMOUNT OF DRAINAGE. BANDAGE REMOVED AND REDRESSED.
[2019-10-29 13:11] VITALS: BP 111/64
[2019-10-29 17:09] VITALS: BP 120/69
--- NOTE | 2019-10-29 18:45 | NUR ---
I have reviewed this patient and I concur with the Shift Assessment completed by the Licensed Practical Nurse today this shift.
--- NOTE | 2019-10-29 19:15 | NUR ---
PATIENT ALERT AND ORIENTED WHEN ENTERING THE ROOM. PATIENT HAS LEFT HAND IV THAT IS INFUSING NS @125. ABDOMEN WITH MIDLINE INCISION AND MARION. REDNESS NOTED AROUND THE INCISION. LLQ COLOSTOMY THAT HAS A BEEFY RED STOMA. LIQUID BROWN STOOL NOTED IN BAG. PATIENT UP AD BREONNA. STATES PAIN IS 4 OUT OF 10 AT THIS TIME. ICE WATER PROVIDED. DENIES FURTHER NEEDS AT THIS TIME. CPOC.
[2019-10-29 20:00] VITALS: BP 122/68
--- NOTE | 2019-10-29 21:10 | NUR ---
PATIENT REQUESTED PRN PAIN MEDICINE. PROVIDED. PATIENT TOLERATED WELL. CALL LIGHT IN REACH.
[2019-10-30] VITALS: BP 109/70
--- NOTE | 2019-10-30 01:20 | NUR ---
REQUESTED PRN PAIN MEDICINE. ADMINISTERED PER ORDER.
--- NOTE | 2019-10-30 03:45 | NUR ---
I have reviewed this patient and I concur with the Shift Assessment completed by the Licensed Practical Nurse today this shift.
[2019-10-30 04:00] VITALS: BP 125/63
[2019-10-30 05:34] LABS: BASOPHILS 0.4 % (0-2); EOSINOPHILS 2.8 % (0-7); HEMATOCRIT 34.4 % (42.0-54.0); HEMOGLOBIN 10.6 g/dL (13.5-17.5); IMMATURE GRANULOCYTES 0.5 % (0-5); MCH 29.8 pg (26.0-34.0); MCHC 30.8 g/dL (31.0-37.0); MCV 96.6 fL (80.0-100.0); MEAN PLATELET VOLUME 9.7 fL (7.4-10.4); MONOCYTES 7.2 % (2-11); NEUTROPHILS 72.1 % (40-80); PLATELET COUNT 400 10x3/uL (130-400); RBC 3.56 10x6/uL (4.20-6.10); RDW 14.2 % (11.5-14.5); WBC 8.6 10x3/uL (4.8-10.8)
[2019-10-30 06:02] LABS: ALBUMIN 2.5 g/dL (3.4-5.0); ALKALINE PHOSPHATASE 67 U/L (46-116); ALT (SGPT) 58 U/L (10-68); BILIRUBIN - TOTAL 1.74 mg/dL (0.2-1.3); CALC OSMOLALITY 278 mosm/kg (275-300); CALCIUM 8.4 mg/dL (8.5-10.1); CARBON DIOXIDE 27.1 mmol/L (21.0-32.0); CHLORIDE - SERUM 108 mmol/L (98-107); CREATININE - SERUM 0.8 mg/dL (0.6-1.3); GLUCOSE 107 mg/dL (74-106); POTASSIUM - SERUM 3.9 mmol/L (3.5-5.1); PROTEIN - SERUM 6.9 g/dL (6.4-8.2); SODIUM 142 mmol/L (136-145); eGFR NON AFRICAN AMERICAN > 90 mL/min (90-120)
[2019-10-30 06:05] LABS: LIPASE 168 U/L (73-393); UREA NITROGEN 2 mg/dL (7-18)
--- NOTE | 2019-10-30 07:10 | NUR ---
PT RESTING IN BED. NO SIGNS OF DISTRESS. IV TO RIGHT FORARM PATENT NO REDNESS OR TENDERNESS. MIDLINE INCISION TO ABDOMEN. COLOSTOMY TO LLQ. DRESSING CLEAN AND INTACT ON ABDOMEN. DENIES ANY FURTHER NEED AT THIS TIME. CALL LIGHT IN REACH. BED LOW POSITION. NO FAMILY AT BEDSIDE AT THIS TIME.
[2019-10-30 08:04] VITALS: BP 120/68
[2019-10-30 12:28] VITALS: BP 128/87
--- NOTE | 2019-10-30 14:52 | NUR ---
I have reviewed this patient and I concur with the Shift Assessment completed by the Licensed Practical Nurse today this shift.
[2019-10-30 16:57] VITALS: BP 127/82
[2019-10-30 20:00] VITALS: BP 135/75
--- NOTE | 2019-10-30 20:00 | NUR ---
REPACKED ABDOMINAL WOUND AND DRESSED WITH 4X4'S ORDERED. MODERATE YELLOW DRAINAGE. COMPLETE ASSESSMENT PER FLOW-SHEET. NO OTHER NEEDS. WILL CONTINUE TO MONITOR.
[2019-10-31 04:00] VITALS: BP 122/76
[2019-10-31 06:03] LABS: BASOPHILS 0.4 % (0-2); EOSINOPHILS 2.6 % (0-7); HEMATOCRIT 31.3 % (42.0-54.0); HEMOGLOBIN 9.6 g/dL (13.5-17.5); IMMATURE GRANULOCYTES 0.1 % (0-5); MCH 29.4 pg (26.0-34.0); MCHC 30.7 g/dL (31.0-37.0); MEAN PLATELET VOLUME 10.1 fL (7.4-10.4); MONOCYTES 11.3 % (2-11); NEUTROPHILS 63.6 % (40-80); PLATELET COUNT 344 10x3/uL (130-400); RBC 3.26 10x6/uL (4.20-6.10); RDW 14.1 % (11.5-14.5)
[2019-10-31 06:26] LABS: ALKALINE PHOSPHATASE 62 U/L (46-116); BILIRUBIN - TOTAL 1.27 mg/dL (0.2-1.3); CALC OSMOLALITY 283 mosm/kg (275-300); CALCIUM 7.8 mg/dL (8.5-10.1); CARBON DIOXIDE 29.5 mmol/L (21.0-32.0); CHLORIDE - SERUM 108 mmol/L (98-107); CREATININE - SERUM 0.6 mg/dL (0.6-1.3); GLUCOSE 89 mg/dL (74-106); POTASSIUM - SERUM 3.8 mmol/L (3.5-5.1); PROTEIN - SERUM 5.4 g/dL (6.4-8.2); SODIUM 145 mmol/L (136-145); UREA NITROGEN 2 mg/dL (7-18); eGFR NON AFRICAN AMERICAN > 90 mL/min (90-120)
[2019-10-31 06:27] LABS: ALT (SGPT) 42 U/L (10-68); LIPASE 109 U/L (73-393)
--- NOTE | 2019-10-31 07:10 | NUR ---
PT RESTING IN BED. NO SIGNS OF DISTRESS. IV TO RIGHT WRIST PATENT NO REDNESS OR TENDERNESS. MIDLINE INCISION TO ABDOMEN. DRESSING CLEAN AND INTACT. COMPLAINS OF PAIN. MEDICATION GIVEN. DENIES ANY FURTHER NEED AT THIS TIME. CALL LIGHT IN REACH. BED LOW POSITION NO FAMILY AT BEDISDE AT THIS TIME.
[2019-10-31 08:20] VITALS: BP 130/80
[2019-10-31 12:03] VITALS: BP 122/75
--- NOTE | 2019-10-31 12:51 | NUR ---
I have reviewed this patient and I concur with the Shift Assessment completed by the Licensed Practical Nurse today this shift.
[2019-10-31] MEDS ORDERED: VIBRAMYCIN 100100 MG PO (13:08)
--- NOTE | 2019-10-31 14:05 | MORECARE ---
CASE MANAGEMENT DISCHARGE SUMMARY PATIENT: RUTH SANTIAGO UNIT: [id number] ADM DATE: 10/27/19 AGE: 59 : 64 SEX: M ROOM/BED: D.2217 AUTHOR: AARON,DOC PHYSICIAN: REFERRING PHYSICIAN: IRAJ RUSS MD DATE OF SERVICE: 10/31/19 Discharge Plan Patient Name: RUTH SANTIAGO Facility: [facility]:[place] : 1960 Planned Disposition: Home with Home Health Anticipated Discharge Date: Discharge Date: Expected LOS: Initial Reviewer: [email or web address] Initial Review Date: 10/27/2019 Generated: 10/31/19 3:05 pm Comments DCP- Discharge Planning Updated by [email or web address]: Bettye Gee on 10/31/19 1:[address] Patient Name: RUTH SANTIAGO Admission Status: ER Accout number: [id number] Admission Date: 10-27-2019 : 1960 Admission Diagnosis: Attending: IRAJ RUSS Current LOS: 4 Anticipated DC Date: Planned Disposition: Home with Home Health Primary Insurance: MEDICAID [place] Discharge Planning Comments: CM met with patient to complete initial dc planning assessment. CM educated patient on the CM role and verbal consent given by patient to complete assessment. Patient lives at home where he is independent with his care. At discharge patient plans to return home and feels this is a safe discharge. He stated that his sister will be the one to drive him home. CM discussed availability of home health, rehab services, and medical equipment. He is current with [facility] and will resume home health at discharge. He has ostomy supplies at home. Patient denied known discharge needs at this time. CM will continue to follow and will assist as needed with dc plans/needs. Senior Communications Engineer: Bettye Gee DCPIA - Discharge Planning Initial Assessment Updated by [id number]: Bettye Gee on 10/31/19 1:59 pm * Is the patient Alert and Oriented? Yes * How many steps to enter\exit or inside your home? 06/30 * PCP JEB * Pharmacy [facility] ON [place] * Preadmission Environment Home Alone * ADLs Independent * Equipment Ostomy Supplies * List name and contact numbers for known caregivers / representatives who currently or will assist patient after discharge: LANI GREENE SISTER [phone] * Verbal permission to speak to the caregivers and representatives has been obtained from the patient. N/A * Community resources currently utilized Home Health * Please name any agencies selected above. [facility] * Additional services required to return to the preadmission environment? Yes * Can the patient safely return to the preadmission environment? Yes * Has this patient been hospitalized within the prior 30 days at any hospital? Yes Coverage Notice Reviewer: [id number] Misty Gee Notice Issued Date-Time: 10/31/2019 13:50 Notice Type: Patient Choice Letter Notice Delivered To: Patient Relationship to Patient: Organizational Development Manager Name: Delivery Method: HAND - Hand Delivered Sisi Days: Prior Verbal Notification: Recipient Understood Notice: Yes Recipient Signature: Yes Med Rec Note Co-signed by Attending: Coverage Notice Comment: [facility] with [facility] to resume home health Patient Name: RUTH SANTIAGO Page [phone] at 1405 All edits/amendments must be made on the electronic document DICTATION DATE: 10/31/19 1405 FIELD TECHNICAL ASSISTANT: SEBASTIAN 10/31/19 1405 RPT#: [id number] DC DATE: STATUS: ADM IN [facility] [address] [place] [address] END OF REPORT
--- NOTE | 2019-10-31 14:15 | MORECARE ---
CASE MANAGEMENT DISCHARGE SUMMARY PATIENT: RUTH SANTIAGO UNIT: [id number] ADM DATE: 10/27/19 AGE: 59 : 64 SEX: M ROOM/BED: D.2217 AUTHOR: AARON,DOC PHYSICIAN: REFERRING PHYSICIAN: IRAJ RUSS MD DATE OF SERVICE: 10/31/19 Discharge Plan Patient Name: RUTH SANTIAGO Facility: [facility]:[place] : 1960 Planned Disposition: Home with Home Health Anticipated Discharge Date: Discharge Date: Expected LOS: Initial Reviewer: [id number] Initial Review Date: 10/27/2019 Generated: 10/31/19 3:15 pm Comments DCP- Discharge Planning Updated by [id number]: Bettye Gee on 10/31/19 1:[address] Patient Name: RUTH SANTIAGO Admission Status: ER Accout number: [id number] Admission Date: 10-27-2019 : 1960 Admission Diagnosis: Attending: IRAJ RUSS Current LOS: 4 Anticipated DC Date: Planned Disposition: Home with Home Health Primary Insurance: MEDICAID [place] Discharge Planning Comments: CM met with patient to complete initial dc planning assessment. CM educated patient on the CM role and verbal consent given by patient to complete assessment. Patient lives at home where he is independent with his care. At discharge patient plans to return home and feels this is a safe discharge. He stated that his sister will be the one to drive him home. CM discussed availability of home health, rehab services, and medical equipment. He is current with [facility] and will resume home health at discharge. He has ostomy supplies at home. Patient denied known discharge needs at this time. CM will continue to follow and will assist as needed with dc plans/needs. Blanket Washer: Bettye Gee DCPIA - Discharge Planning Initial Assessment Updated by [email or web address]: Bettye Gee on 10/31/19 1:59 pm * Is the patient Alert and Oriented? Yes * How many steps to enter\exit or inside your home? 06/30 * PCP JEB * Pharmacy [facility] ON [place] * Preadmission Environment Home Alone * ADLs Independent * Equipment Ostomy Supplies * List name and contact numbers for known caregivers / representatives who currently or will assist patient after discharge: LANI GREENE SISTER [phone] * Verbal permission to speak to the caregivers and representatives has been obtained from the patient. N/A * Community resources currently utilized Home Health * Please name any agencies selected above. [facility] * Additional services required to return to the preadmission environment? Yes * Can the patient safely return to the preadmission environment? Yes * Has this patient been hospitalized within the prior 30 days at any hospital? Yes External Providers [facility] Next Contact Date: Service Request Date: Service Type: Resolution: Reviewer: Comments: Coverage Notice Reviewer: [id number] Misty Gee Notice Issued Date-Time: 10/31/2019 13:50 Notice Type: Patient Choice Letter Notice Delivered To: Patient Relationship to Patient: Project Engineering Director Name: Delivery Method: HAND - Hand Delivered Sisi Days: Prior Verbal Notification: Recipient Understood Notice: Yes Recipient Signature: Yes Med Rec Note Co-signed by Attending: Coverage Notice Comment: [facility] with [facility] to resume home health Last DP export: 10/31/19 1:05 p Patient Name: RUTH SANTIAGO Page [phone] at 1415 All edits/amendments must be made on the electronic document DICTATION DATE: 10/31/191414 DIRECTOR OF PATIENT CARE: SEBASTIAN 10/31/191414 RPT#: [id number] DC DATE: STATUS: ADM IN [address] [place] [address] END OF REPORT
--- NOTE | 2019-10-31 15:28 | NUR ---
IV THERAPY DC'ED FROM RIGHT WRIST. DISCHARGE INSTRUCTIONS GIVEN. PATIENT VERBALIZED UNDERSTANDING. QUESTIONS TO WHAT MEDICATIONS HE WAS BEING ESCRIBED. I TOLD HIM DOXYCYCLINE HYCLATE. DRESSING CHANGED. REFUSED WHEELCHAIR DOWN TO ENTRANCE.
== END 2019-10-31 15:38 | disposition home health service (06) | DRG 920 ==
LOC: D.ER 12:49 → D.MS 16:33
PROVIDERS: Family Medicine; ADMIT Family Medicine; ATTEND Family Medicine
DX: T81.31XA Disruption of external operation (surgical) wound, not elsewhere classified, initial encounter (principal); T81.41XA Infection following a procedure, superficial incisional surgical site, initial encounter; L02.91 Cutaneous abscess, unspecified; K70.30 Alcoholic cirrhosis of liver without ascites; F10.10 Alcohol abuse, uncomplicated

== ENCOUNTER 2020-04-05 10:55 | Emergency (ER) | payer MEDICAID ==
[~2020-04-05] VITALS: Ht 162.6 cm; Wt 65.0 kg
[~2020-04-05 10:55] MED LIST changes: +VIBRAMYCIN 100100 MG PO
[2020-04-05 11:09] VITALS: Ht 162.6 cm; Wt 65.0 kg
[2020-04-05 11:42] LABS: UDS - AMPHET NEGATIVE QUAL (NEGATIVE); UDS - BARB NEGATIVE QUAL (NEGATIVE); UDS - BENZO NEGATIVE QUAL (NEGATIVE); UDS - COCAINE NEGATIVE QUAL (NEGATIVE); UDS - OPIATE POSITIVE QUAL (NEGATIVE); UDS - PCP NEGATIVE QUAL (NEGATIVE); UDS - THC POSITIVE QUAL (NEGATIVE)
[2020-04-05 11:46] LABS: BASOPHILS 0.3 % (0-2); EOSINOPHILS 0.4 % (0-7); HEMOGLOBIN 14.1 g/dL (13.5-17.5); IMMATURE GRANULOCYTES 0.3 % (0-5); LYMPHOCYTES 32.3 % (15-50); MCH 29.9 pg (26.0-34.0); MCHC 33.6 g/dL (31.0-37.0); MEAN PLATELET VOLUME 10.6 fL (7.4-10.4); MONOCYTES 7.6 % (2-11); NEUTROPHILS 59.1 % (40-80); RBC 4.72 10x6/uL (4.20-6.10); RDW 15.6 % (11.5-14.5); WBC 7.7 10x3/uL (4.8-10.8)
[2020-04-05 11:47] LABS: PLATELET COUNT 154 10x3/uL (130-400)
[2020-04-05 11:59] LABS: CALC OSMOLALITY 277 mosm/kg (275-300); CALCIUM 8.7 mg/dL (8.5-10.1); CARBON DIOXIDE 26.7 mmol/L (21.0-32.0); CHLORIDE - SERUM 104 mmol/L (98-107); CREATININE - SERUM 0.7 mg/dL (0.6-1.3); GLUCOSE 101 mg/dL (74-106); SODIUM 140 mmol/L (136-145); UREA NITROGEN 9 mg/dL (7-18); eGFR NON AFRICAN AMERICAN > 90 mL/min (90-120)
[2020-04-05 12:04] LABS: APTT 30.2 SECONDS (22.8-39.4)
[2020-04-05 12:16] LABS: ALBUMIN 3.5 g/dL (3.4-5.0); ALKALINE PHOSPHATASE 43 U/L (30-120); ALT (SGPT) 67 U/L (10-68); BILIRUBIN - TOTAL 0.37 mg/dL (0.2-1.3); CKMB 2.1 U/L (0.0-3.6); CREATINE KINASE 133 UL (21-232); PROTEIN - SERUM 7.3 g/dL (6.4-8.2); TROPONIN-I < 0.017 ng/mL (0.000-0.060)
[2020-04-05 12:17] LABS: BILIRUBIN NEGATIVE (NEGATIVE); GLUCOSE NEGATIVE (NEGATIVE); KETONE NEGATIVE (NEGATIVE); NITRITE NEGATIVE (NEGATIVE); UROBILINOGEN NORMAL (NORMAL)
[2020-04-05 12:21] LABS: INR 1.04 (0.85-1.17); PROTIME 13.5 SECONDS (11.6-15.0)
[2020-04-05 14:40] VITALS: BP 130/79
== END 2020-04-05 14:41 | disposition home or self-care (01) ==
LOC: D.ER 10:55
PROVIDERS: Family Medicine
DX: R07.89 Other chest pain (principal); R41.82 Altered mental status, unspecified

== ENCOUNTER 2020-05-30 07:20 | Inpatient (IN) | payer OTHER ==
[~2020-05-30] VITALS: Ht 162.6 cm; Wt 63.2 kg
--- NOTE | 2020-05-30 00:15 | NUR ---
ONCE PT OUT OF SHOWER, HE YELLED OUT THE DOOR FOR HELP WHILE NAKED. THIS NURSE WAS IN ANOTHER PT ROOM SO NURSES AID ENTERED ROOM. PT YELLED AT HER STATING HE NEEDED ME IN THE ROOM RIGHT NOW TO DO HIS COLOSTOMY DRESSING AND START HIM ANOTHER IV. NURSES AID TOLD PT I WAS IN ANOTHER ROOM AND WOULD BE WITH HIM IN A FEW MINUTES AND HE GOT AGITATED THROWING STUFF AROUND STATING HE WANTED IT DONE NOW AND THAT SHE SHOULD JUST DO IT. NURSES AID TOLD PT SHE COULD NOT BUT WOULD LET ME KNOW HE NEEDED ME. BEFORE THIS NURSE COULD GO TO ROOM, SECOND NURSE HEARD COMMOTION AND WENT TO ROOM. SHE BROUGHT HIM ALL SUPPLIES AND TOLD HIM HE COULD REPLACE HIS COLOSTOMY BAG THAT HE KNOWS HOW TO DO IT WHILE HE WAITS FOR ME TO COME SITE IV. PT BECAME UPSET AND YELLED AT NURSE WHO TOLD PT NOT TO YELL AT HER. HE WAS SCREAMING ABOUT HOW HE WANTED ME IN THERE WHEN SHE LEFT THE ROOM. I ENTERED ROOM PT WAS PLACING NEW COLOSTOMY BAG. TOLD HIM TO CALL WHEN DONE FOR IV. STATED HE WOULD AND TOLD ME TO SHUT THE DOOR.
[2020-05-30 07:42] LABS: BASOPHILS 0.5 % (0-2); EOSINOPHILS 1.4 % (0-7); HEMATOCRIT 38.9 % (42.0-54.0); HEMOGLOBIN 13.2 g/dL (13.5-17.5); IMMATURE GRANULOCYTES 0.3 % (0-5); LYMPHOCYTES 30.7 % (15-50); MCH 30.3 pg (26.0-34.0); MCHC 33.9 g/dL (31.0-37.0); MCV 89.4 fL (80.0-100.0); MEAN PLATELET VOLUME 10.9 fL (7.4-10.4); MONOCYTES 8.5 % (2-11); NEUTROPHILS 58.6 % (40-80); PLATELET COUNT 143 10x3/uL (130-400); RBC 4.35 10x6/uL (4.20-6.10); RDW 13.3 % (11.5-14.5); WBC 10.5 10x3/uL (4.8-10.8)
[2020-05-30 07:48] LABS: INR 1.06 (0.85-1.17); PROTIME 13.8 SECONDS (11.6-15.0)
[2020-05-30 07:49] LABS: CALC OSMOLALITY 262 mosm/kg (275-300); CALCIUM 8.5 mg/dL (8.5-10.1); CARBON DIOXIDE 24.9 mmol/L (21.0-32.0); CHLORIDE - SERUM 99 mmol/L (98-107); CREATININE - SERUM 0.8 mg/dL (0.6-1.3); GLUCOSE 98 mg/dL (74-106); SODIUM 132 mmol/L (136-145); UREA NITROGEN 8 mg/dL (7-18); eGFR NON AFRICAN AMERICAN > 90 mL/min (90-120)
--- NOTE | 2020-05-30 07:49 | NUR ---
MENTAL HEALTH NURSE AT BEDSIDE FOR PATIENT EVALUATION.
[2020-05-30 07:56] LABS: BILIRUBIN NEGATIVE (NEGATIVE); GLUCOSE NEGATIVE (NEGATIVE); KETONE NEGATIVE (NEGATIVE); NITRITE NEGATIVE (NEGATIVE); UROBILINOGEN NORMAL (NORMAL)
--- NOTE | 2020-05-30 07:59 | NUR ---
ACCORDING TO THE SUICIDE ASSESSMENT THE PATIENT DOES NOT REQUIRE 1:1 OBSERVATION. PROVIDE SUICIDE FLYER RESOURCE.
[2020-05-30 08:03] LABS: ALBUMIN 3.6 g/dL (3.4-5.0); ALKALINE PHOSPHATASE 41 U/L (30-120); ALT (SGPT) 28 U/L (10-68); AMYLASE - SERUM 48 U/L (25-115); BILIRUBIN - TOTAL 0.85 mg/dL (0.2-1.3); LIPASE 111 U/L (73-393); PROTEIN - SERUM 6.9 g/dL (6.4-8.2)
[2020-05-30 08:04] LABS: POTASSIUM - SERUM 4.4 mmol/L (3.5-5.1); TROPONIN-I < 0.017 ng/mL (0.000-0.060)
[2020-05-30 08:11] LABS: UDS - AMPHET NEGATIVE QUAL (NEGATIVE); UDS - BARB NEGATIVE QUAL (NEGATIVE); UDS - BENZO NEGATIVE QUAL (NEGATIVE); UDS - COCAINE NEGATIVE QUAL (NEGATIVE); UDS - OPIATE NEGATIVE QUAL (NEGATIVE); UDS - PCP NEGATIVE QUAL (NEGATIVE); UDS - THC POSITIVE QUAL (NEGATIVE)
[2020-05-30 13:05] VITALS: BP 121/77
--- NOTE | 2020-05-30 14:30 | NUR ---
RECEIVED PATIENT VIA BED. PLACED TO MONITOR WITH ALARM PARAMETERS SET. BED IN LOW POSITION WITH SR UP X 2
[2020-05-30 14:58] VITALS: BP 106/72; Ht 162.6 cm; Wt 63.2 kg
--- NOTE | 2020-05-30 16:30 | NUR ---
AWAKE WITH NO ISSUES. SR UP X 2. BED IN LOW POSITION. CALL LIGHT IN REACH.
[2020-05-30 16:51] VITALS: BP 106/72
--- NOTE | 2020-05-30 17:42 | NUR ---
GAVE REPORT TO KOFI GAINES. VERBALIZED UNDERSTANDING. WILL TRANSFER PATIENT TO ROOM 9725
--- NOTE | 2020-05-30 18:31 | NUR ---
PT RECIEVED FROM ICU, ASSUMED CARE. PT ALERT AND STABLE.
--- NOTE | 2020-05-30 19:30 | NUR ---
PT UP WALKING AROUND NURSES STATION, DENIES PAIN OR NEEDS. IV RIGHT HAND INFUSING PROTONIX @ 10.
[2020-05-30 20:00] VITALS: BP 121/73
--- NOTE | 2020-05-30 21:00 | NUR ---
PT WALKING AROUND ROOM STATING HE WAS JUST ABOUT TO GET IN SHOWER. TOLD PT HE HAS MEDS TO TAKE AND I NEEDED TO WRAP UP HIS IV SO IT DID NOT GET WET. VERBALIZED UNDERSTANDING. LEFT ROOM TO GET MEDS, PT REFUSED TRAZADONE AT THIS TIME. THIS NURSE WAS WRAPPING IV PT TOLD THIS NURSE SHE WAS BEAUTIFUL AND HOW HE WAS "LOOKING FOR THE ONE" AND HAD RECENTLY JOINED A DATING WEBSITE. HE THEN PULLED DATING WEBSITE UP TO SHOW ME "ALL THE GIRLS" WHO ARE MESSAGING HIM AND WHEN HE SHOWED HIS PHONE SCREEN TOWARDS ME IT WAS PICTURES OF HIS PENIS. TOLD PT THAT WAS INAPPROPRIATE AND HE BEGAN APOLIGIZING OVER AND OVER STATING HE DID NOT REALIZED THOSE WERE ON THERE AND DID NOT MEAN TO SHOW ME THAT. PT THEN GOT UP TO SHOWER AND CALLED THIS NURSE BACK TO ROOM MULTIPLE TIMES WHILE HE WAS IN THE SHOWER TO BRING HIM MORE TOWELS, WASH CLOTHS, AND SOAP AFTER ALREADY GIVING HIM PLENTY. BROUGHT HIM MORE REQUESTED AND SAT OUTSIDE BATHROOM TO DOOR FOR PT TO RETREIVE
--- NOTE | 2020-05-30 22:00 | NUR ---
PT UP WALKING HALLWAYS AND DOES NOT YET WANT ME TO RECONNECT HIS IV TO [facility]
--- NOTE | 2020-05-30 23:30 | NUR ---
PT UPSET THAT HIS IV STARTED BEEPING OCCLUDED AFTER BENDING IT AT THE WRIST. STATED IT WAS DISRUPTING HIM TRYING TO MESSAGE GIRLS ON THE DATING WEBSITE BECAUSE IT WOULD BEEP HE TYPED FROM BENDING WRIST. PT REQUESTED THIS NURSE RESITE IV. THIS NURSE TOLD PT HIS COLOSTOMY WAS GETTING FULL AND HE NEEDED TO GO EMPTY IT, HE STATES HE WILL GET UP AFTER IV. THIS NURSE LEFT TO GO GET IV SUPPLIES AND GOT CALLED TO ANOTHER ROOM. ANIMAL ATTENDANTS AND TRAINERS WAS ON FLOOR AND AWARE OF INAPPROPRIATE COMMENTS MADE BY PT AND NAKED PICTURES. SHE WENT TO ROOM TO START IV WHILE THIS NURSE WAS IN ANOTHER ROOM. PT REFUSED TO LET HER START IT STATING HE WOULD EMPTY HIS COLOSTOMY WHILE HE WAITED ON ME. ABOUT 10 MINUTES LATER PT STARTED SCREAMING FOR HELP. THIS NURSE AND NURSES AID ENTERED ROOM AND PT HAD PULLED COLOSTOMY BAG OFF AND HAD IT EMPTIED ALL OVER FLOOR, ON THE MCMULLEN AND BED AND HAD ALREADY PULLED ALL HIS CLOTHES OFF. STATED HE NEEDED TO SHOWER AND THEN PULLED HIS IV OUT STATING I WOULD BE RESITING IT ANYWAY SO THAT WOULD BE EASIER THAN WRAPPING IT UP. PT THEN GO IN SHOWER WHILE THIS NURSE, NURSES AID, AND EVS CLEANED ROOM
--- NOTE | 2020-05-31 00:15 | NUR ---
ONCE PT OUT OF SHOWER, HE YELLED OUT THE DOOR FOR WHILE NAKED. THIS NURSE WAS IN ANOTHER PT ROOM SO NURSES AID ENTERED ROOM. PT YELLED AT HER STATING HE NEEDED ME IN THE ROOM RIGHT NOW TO DO HIS COLOSTOMY BAG AND START A NEW IV. NURSES AID TOLD PT I WAS IN ANOTHER ROOM AND SHE WOULD LET ME KNOW. PT BEGAN THROWING THINGS AROUND ROOM STATING HE WANTED ME RIGHT NOW AND THAT SHE NEEDED TO START DOING TO COLOSTOMY BECAUSE HE DID NOT FEEL LIKE IT. SHE TOLD HIM SHE COULD NOT PLACE A COLOSTOMY BAG AND SHE WOULD AGAIN LET ME KNOW. ANOTHER NURSE HEARD THE YELLING AND ENTERED ROOM. TOLD PT HE COULD PUT HIS OWN COLOSTOMY BAG ON, THAT HE HAS BEEN DOING IT AT HOME AND THAT WHEN HE WAS DONE THIS NURSE WOULD BE IN ROOM TO START IV. PT BEGAN YELLING AT SECOND NURSE STATING HE NEEDED SUPPLIES, NURSE WENT AND GOT SUPPLIES FOR PT AND HE CONTINUED TO YELL AT HER, SHE TOLD HIM NOT TO SPEAK TO HER LIKE THAT AND SHE WOULD GET ME TO COME TO ROOM FOR IV AND LEFT. THIS NURSE WENT TO ROOM AND PT WAS PLACING COLOSTOMY BAG. TOLD PT TO CALL WHEN DONE AND I WOULD COME PLACE IV. PT TOLD ME HE WOULD AND STATED TO SHUT THE DOOR.
--- NOTE | 2020-05-31 01:00 | NUR ---
THIS NURSE WAS STANDING WITH ESTATE PLANNING ATTORNEY UPDATING HER ON PT BECAUSE SHE CAME BACK UP TO CHECK IF HE HAD IV PLACED, THIS NURSE HEARD DOOR SLAM FROM DIRECTION OF PATIENTS ROOM. HE STARTED WALKING TOWARDS ME THEN TURNED THE OTHER DIRECTION. THIS NURSE AND SUPVERVISOR CUT ACROSS TO OTHER SIDE OF NURSES STATION PT CAME AROUND THE CORNER. HE HAD ALL HIS BELONGINGS, WAS BAREFOOT AND SHIRTLESS WITH NO MASK ON AND WALKING FAST TOWARDS ER. THIS NURSE AND MEDICAL TECHNOLOGIST TRIED TO STOP HIM AND HE STATED HE WAS GOING TO SMOKE AND KEPT WALKING. THIS NURSE ASKED WHY HE HAD ALL HIS BELONGINGS AND HE WOULD NOT ANSWER. MEDICAL TECHNOLOGIST TOLD HIM HE COULD NOT LEAVE TO GO SMOKE AND HE WOULD NOT REPSOND. WE FOLLOWED HIM TO ER. I TOLD HIM IF HE WAS LEAVING WE NEEDED HIM TO SIGN A FORM IF HE UNDERSTOOD HE WAS LEAVING AGAINST MEDICAL ADVICE. AT THIS POINT WE HAD MADE IT TO ER ENTRANCE AND PT TOOK OFF RUNNING ONCE HE SAW THE CHECK IN PEOPLE AT THIS DOOR CHECKING TEMPS. HE RAN OUT THE DOOR AND TOOK A LEFT AROUND THE BUILDING. SECURITY WAS CALLED AND HE WAS FOUND OUT PAST THE AMBULANCE BAY NEAR THE ROAD SMOKING. HE STATES HE WILL SIGN THE FORM THAT HE DOES NOT WANT TO STAY. THIS NURSE AND MEDICAL TECHNOLOGIST WENT BACK INSIDE TO GET FROM WHILE PT WAITED. BROUGHT FORM BACK OUT, PT SIGNED WITH UNDERSTANDING HE WAS LEAVING AGAINST MEDICAL ADVICE AND CHOOSING NOT TO SPEAK WITH . CAME BACK INSIDE AND CALLED DR MCGHEE AND UPDATED ABOUT PT LEAVING AMA.
== END 2020-05-31 01:00 | disposition left against medical advice (07) | DRG 395 ==
LOC: OBSVTIME → D.ER 07:20 → OBSVTIME 09:26 → D.MS 09:26 → D.EDHOLD 09:26 → D.ER 09:26 → D.ICU 13:08 → D.EDHOLD 13:08 → D.MS 17:44 → D.ICU 17:44 → D.MS 05-31 01:00
PROVIDERS: Family Medicine; ADMIT Family Medicine; ATTEND Family Medicine
DX: K94.09 Other complications of colostomy (principal); N45.1 Epididymitis; K59.00 Constipation, unspecified; R10.9 Unspecified abdominal pain; F17.200 Nicotine dependence, unspecified, uncomplicated